=== PATIENT | female | born 1975 | race African-American/Black ===

== ENCOUNTER 2017-11-17 12:02 | Inpatient (IN) ==
[~2017-11-17 12:02] MED LIST: Lidocaine PF 1% Inj 5 ML Syringe INFILTRATN ONE; Succinylcholine Inj 200 MG/10 ML Vial IV.PUSH ONE
[2017-11-17 12:46] LABS: Baso # (Auto) 0.1 th/mm3 (0.0-0.2); Baso % (Auto) 0.4 % (0.0-2.0); Eos % (Auto) 0.3 % (0.0-4.0); Hematocrit 33.2 % (35.0-46.0); Hemoglobin 10.3 gm/dL (11.6-15.3); Lymph # (Auto) 1.8 th/mm3 (1.0-4.8); Lymph % (Auto) 12.8 % (9.0-44.0); Mean Corpuscular Hemoglobin 25.7 pg (27.0-34.0); Mean Corpuscular Volume 82.7 fL (80.0-100.0); Mean Platelet Volume 8.9 fL (7.0-11.0); Mono # (Auto) 1.5 th/mm3 (0.0-0.9); Mono % (Auto) 10.6 % (0.0-8.0); Neut # (Auto) 10.5 th/mm3 (1.8-7.7); Neut % (Auto) 75.9 % (16.0-70.0); Platelet Count 564 th/mm3 (150-450); Red Blood Count 4.01 mil/mm3 (4.00-5.30); Red Cell Distribution Width 14.9 % (11.6-17.2); White Blood Count 13.8 th/mm3 (4.0-11.0)
[2017-11-17 13:10] LABS: Calcium 8.9 mg/dL (8.5-10.1); Carbon Dioxide 17.6 meq/L (21.0-32.0)
[2017-11-17] MEDS ORDERED: Vancomycin Inj 1,000 MG in Sodium Chlor 0.9% Inj 250 ML IV.SIG STA (14:09)
[2017-11-17] MEDS ORDERED: Piperacil/Tazo 4.5 GM Premix 4.5 GM/100 ML BAG IV.SIG STA (14:09)
[2017-11-17] MEDS ORDERED: Sod Chloride 0.9% Inj 1,000 ML IV.SIG ONE ×3 (14:21→14:24)
--- NOTE | 2017-11-17 14:47 | ED ---
HPI General Chief complaint: Skin/Abscess/Foreign Body Stated complaint: Leg Pain Time Seen by Provider: 11/17/17 13:50 Source: patient Mode of arrival: ambulatory Limitations: no limitations History of Present Illness HPI narrative: 42-year-old diabetic female presents emergency department for evaluation of a "boil" to her right inner thigh that is been present for approximately 3 weeks. Says that she was evaluated at the ER at [facility] and given antibiotics however did not resolve. Says she subsequently followed up with an urgent care who prescribed clindamycin 300 mg 3 times daily for 7 days. Says was the last dose. Says that since last the abscess increased in size and pain. Says in addition she has had a grayish colored discharge from the right upper thigh. She also says that she has an abscess to her pubic area that is been present for several days. Her pain is moderate in severity and nonradiating. Described as aching and sharp, worse with pressure. She has been taking ibuprofen as previously prescribed for the pain and fever. Says she has had a decreased appetite with associated nausea for about a week and a half. She also noticed that her blood sugar has been elevated and she has felt feverish. Says her temperature has been up to 101. Says she did take all of her medical medications this morning. Says that she went to work this morning he decided to come in after work for evaluation. complaint: abscess/boil Onset (ago): week(s) (3) Related Data Allergies Allergy/AdvReac Type Severity Reaction Status Date / Time levofloxacin Allergy Severe Rash Verified 11/17/17 15:40 Review of Systems Except as stated in HPI: all other systems reviewed are negative [facility] Medical History Medical History Diabetes (Acute) Social History Social History Substance History: No History of Abuse Second Hand Smoke Exposure: No Smoking Status: Never smoker How Often Do You Have a Drink Containing Alcohol: Monthly or less Recent Travel in [place] within the Last 8 Weeks: No Recent Out of Country Travel within the Last 8 Weeks: No Exam Narrative Exam Narrative: GENERAL: WD, WN in NAD SKIN: Focused skin assessment warm/dry. Left upper thigh- 5x15cm mass with TTP, no spontaneough expression of fluid, area of central puncta, necrotic appearing tissue at inferior portion mons pubis- 4-5cm, round, with central puncta, bloody exudate HEAD: Atraumatic. Normocephalic. EYES: Pupils equal and round. No scleral icterus. No injection or drainage. ENT: No nasal bleeding or discharge. Mucous membranes pink and moist. NECK: Trachea midline. No JVD. CARDIOVASCULAR: tachycardic, regular rate and rhythm. No murmur appreciated. RESPIRATORY: No accessory muscle use. Clear to auscultation. Breath sounds equal bilaterally. GASTROINTESTINAL: Abdomen soft, non-tender, nondistended. Hepatic and splenic margins not palpable. MUSCULOSKELETAL: No obvious deformities. No clubbing. No cyanosis. No edema. NEUROLOGICAL: Awake and alert. No obvious cranial nerve deficits. Motor grossly within normal limits. Normal speech. PSYCHIATRIC: Appropriate mood and affect; insight and judgment normal. Course Initial Documented Vital Signs Temperature 100 F H 11/17/17 12:06 Pulse Rate 122 H 11/17/17 12:06 Respiratory Rate 18 11/17/17 12:06 Blood Pressure 149/78 H 11/17/17 12:06 Pulse Oximetry 100 11/17/17 12:06 Last Documented Vital Signs Temperature 100.3 F H 11/17/17 14:35 Pulse Rate 105 H 11/17/17 14:35 Respiratory Rate 18 11/17/17 14:35 Blood Pressure 144/74 H 11/17/17 14:35 Pulse Oximetry 100 11/17/17 14:35 Medical Decision Making [facility] Narrative Medical decision making narrative: 42-year-old female presents emergency department evaluation of an abscess to the right upper thigh that is been present for approximately 3 weeks. She says that she has taken 2 rounds of antibiotics and is not improved and only worsened. Says her last week and a half she has had a decreased appetite with associated nausea without vomiting. She has also had fevers up to 101 controlled with Motrin and Tylenol. Vital signs and labs are suggestive of developing sepsis. Physical exam findings concerning for extensive abscess to the right upper extremity. Zosyn, vancomycin, initiated. Sepsis protocol initiated. Blood sugar elevated over 500, ABG ordered for evaluation. 12U regular insulin administered. It does not appear at this point she is in DKA but BGL should be monitored. Dr. Espinoza spoke with Dr. Russo, general surgeon who advised to consult him for this patient. Pt will be admitted for sepsis secondary to an extensive abscess with failed outpatient antibiotic use, elevated blood sugar. I spoke with Dr. Antunez who agreed to take this patient. Differential Diagnosis Differential Diagnosis: Right lower extremity abscess, cellulitis, forniers gangrene, sepsis Lab Data Result diagrams: 11/17/17 12:17 11/17/17 12:17 Lab Results 11/17/17 11/17/17 11/17/17 Range/Units 12:17 12:17 12:17 WBC 13.8 H (4.0-11.0) th/mm3 RBC 4.01 (4.00-5.30) mil/mm3 Hgb 10.3 L (11.6-15.3) gm/dL Hct 33.2 L (35.0-46.0) % MCV 82.7 (80.0-100.0) fL MCH 25.7 L (27.0-34.0) pg MCHC 31.0 L (32.0-36.0) % RDW 14.9 (11.6-17.2) % Plt Count 564 H (150-450) th/mm3 MPV 8.9 (7.0-11.0) fL Neut % (Auto) 75.9 H (16.0-70.0) % Lymph % (Auto) 12.8 (9.0-44.0) % [place] % (Auto) 10.6 H (0.0-8.0) % Eos % (Auto) 0.3 (0.0-4.0) % Baso % (Auto) 0.4 (0.0-2.0) % Neut # (Auto) 10.5 H (1.8-7.7) th/mm3 Lymph # (Auto) 1.8 (1.0-4.8) th/mm3 [place] # (Auto) 1.5 H (0.0-0.9) th/mm3 Eos # (Auto) 0.0 (0.0-0.4) th/mm3 Baso # (Auto) 0.1 (0.0-0.2) th/mm3 WBC Differential . Differential Comment Auto diff final PT (9.8-11.6) sec INR Ratio APTT (24.3-30.1) sec Puncture Site Patient Temperature O2 Saturation (90-100) % ABG pH (7.380-7.420) ABG pCO2 (38-42) mmHg ABG pO2 (61-120) mmHg ABG HCO3 (22-26) mmol/L ABG O2 Content (12.0-20.0) Vol % ABG Base Excess (-2-2) mmol/L ABG Methemoglobin (0-2) % Hermilo Test Hemoglobin (12.0-16.0) G/DL Carboxyhemoglobin (0-4) % Inspired O2 % Critical Value Sodium 127 L (136-145) meq/L Potassium 5.0 (3.5-5.1) meq/L Chloride 91 L (98-107) meq/L Carbon Dioxide 17.6 L (21.0-32.0) meq/L Anion Gap 18 H (5-15) meq/L BUN 19 H (7-18) mg/dL Creatinine 1.70 H (0.50-1.00) mg/dL Estimated GFR 40 L (>89) mL/min POC Glucose (68-110) mg/dl Random Glucose 552 H* (74-106) mg/dL Lactic Acid 2.2 H (0.4-2.0) mmol/L Calcium 8.9 (8.5-10.1) mg/dL 11/17/17 11/17/17 11/17/17 Range/Units 14:47 14:58 16:11 WBC (4.0-11.0) th/mm3 RBC (4.00-5.30) mil/mm3 Hgb (11.6-15.3) gm/dL Hct (35.0-46.0) % MCV (80.0-100.0) fL MCH (27.0-34.0) pg MCHC (32.0-36.0) % RDW (11.6-17.2) % Plt Count (150-450) th/mm3 MPV (7.0-11.0) fL Neut % (Auto) (16.0-70.0) % Lymph % (Auto) (9.0-44.0) % [place] % (Auto) (0.0-8.0) % Eos % (Auto) (0.0-4.0) % Baso % (Auto) (0.0-2.0) % Neut # (Auto) (1.8-7.7) th/mm3 Lymph # (Auto) (1.0-4.8) th/mm3 [place] # (Auto) (0.0-0.9) th/mm3 Eos # (Auto) (0.0-0.4) th/mm3 Baso # (Auto) (0.0-0.2) th/mm3 WBC Differential Differential Comment PT 11.2 (9.8-11.6) sec INR 1.1 Ratio APTT 30.1 (24.3-30.1) sec Puncture Site Right radial Patient Temperature 98.6 O2 Saturation 96 (90-100) % ABG pH 7.42 (7.380-7.420) ABG pCO2 25 L (38-42) mmHg ABG pO2 98 (61-120) mmHg ABG HCO3 16 L* (22-26) mmol/L ABG O2 Content 14.6 (12.0-20.0) Vol % ABG Base Excess -7.6 L (-2-2) mmol/L ABG Methemoglobin 0.8 (0-2) % [place] Test Present Hemoglobin 10.8 L (12.0-16.0) G/DL Carboxyhemoglobin 1.5 (0-4) % Inspired O2 21 % Critical Value Yes Sodium (136-145) meq/L Potassium (3.5-5.1) meq/L Chloride (98-107) meq/L Carbon Dioxide (21.0-32.0) meq/L Anion Gap (5-15) meq/L BUN (7-18) mg/dL Creatinine (0.50-1.00) mg/dL Estimated GFR (>89) mL/min POC Glucose 487 H* (68-110) mg/dl Random Glucose (74-106) mg/dL Lactic Acid (0.4-2.0) mmol/L Calcium (8.5-10.1) mg/dL Imaging Data Radiologist's impression: ITS Impressions Chest X-Ray 11/17/17 14:09 CONCLUSION: No acute intrathoracic disease. Discharge Plan Discharge Disposition Patient Disposition: 30 Still Patient Discharge Condition Condition: Stable Discharge Details Discharge Problem: Sepsis affecting skin, Abscess, Acute hyperglycemia Physicians Team ED Provider: Hi Espinoza ED Midlevel Provider: Cielo Villaseñor Primary Care Provider: UNKNOWN, Attending Provider: Margarito Castellanos Discharge Interventions Interventions: Vital Signs Last Done: 11/17/17 14:35 Status ED Status: Admitted Patient
[2017-11-17 15:19] LABS: ABG Base Excess -7.6 mmol/L (-2-2); ABG PCO2 25 mmHg (38-42); ABG PO2 98 mmHg (61-120)
--- NOTE | 2017-11-17 15:24 | ED ---
HPI General Chief complaint: Skin/Abscess/Foreign Body Stated complaint: Leg Pain Time Seen by Provider: 11/17/17 13:50 Source: patient Mode of arrival: ambulatory Limitations: no limitations History of Present Illness MD complaint: abscess/boil Related Data Allergies Allergy/AdvReac Type Severity Reaction Status Date / Time clindamycin Allergy Severe Unverified 12/27/16 19:07 levofloxacin Allergy Severe Unverified 12/27/16 19:07 [facility] Medical History Medical History Diabetes (Acute) Social History Social History Substance History: No History of Abuse Second Hand Smoke Exposure: No Smoking Status: Never smoker How Often Do You Have a Drink Containing Alcohol: Monthly or less Recent Travel in [facility] within the Last 8 Weeks: No Recent Out of Country Travel within the Last 8 Weeks: No Immunization History Tetanus Immunization: <5 Years Hx Influenza Vaccine This Season: No Course Initial Documented Vital Signs Temperature 100 F H 11/17/17 12:06 Pulse Rate 122 H 11/17/17 12:06 Respiratory Rate 18 11/17/17 12:06 Blood Pressure 149/78 H 11/17/17 12:06 Pulse Oximetry 100 11/17/17 12:06 Last Documented Vital Signs Temperature 100.3 F H 11/17/17 14:35 Pulse Rate 105 H 11/17/17 14:35 Respiratory Rate 18 11/17/17 14:35 Blood Pressure 144/74 H 11/17/17 14:35 Pulse Oximetry 100 11/17/17 14:35 Medical Decision Making TERE Attestation TERE supervised visit: Yes Attestation: I, Dr. Espinoza, have reviewed the advance practice practitioner's documentation and am in agreement, met with the patient face to face, made the diagnosis, and the medical decision making was done by me. *My assessment and Findings: I examined the patient. She has a large right posterior proximal thigh abscess. It is not in the perineum. But he does need reasonably urgent attention. There is a necrotic center. She is an uncontrolled diabetic. She was given 3 L of saline and IV antibiotics and IV insulin. I spoke with general surgeon Dr. Russo who will evaluate her today and consider operating room drainage. PH is normal. Patient will be admitted Lab Data Result diagrams: 11/17/17 12:17 11/17/17 12:17 Lab Results 07/06/18 07/06/18 07/06/18 Range/Units 12:17 12:17 12:17 WBC 13.8 H (4.0-11.0) th/mm3 RBC 4.01 (4.00-5.30) mil/mm3 Hgb 10.3 L (11.6-15.3) gm/dL Hct 33.2 L (35.0-46.0) % MCV 82.7 (80.0-100.0) fL MCH 25.7 L (27.0-34.0) pg MCHC 31.0 L (32.0-36.0) % RDW 14.9 (11.6-17.2) % Plt Count 564 H (150-450) th/mm3 MPV 8.9 (7.0-11.0) fL Neut % (Auto) 75.9 H (16.0-70.0) % Lymph % (Auto) 12.8 (9.0-44.0) % [place] % (Auto) 10.6 H (0.0-8.0) % Eos % (Auto) 0.3 (0.0-4.0) % Baso % (Auto) 0.4 (0.0-2.0) % Neut # (Auto) 10.5 H (1.8-7.7) th/mm3 Lymph # (Auto) 1.8 (1.0-4.8) th/mm3 [place] # (Auto) 1.5 H (0.0-0.9) th/mm3 Eos # (Auto) 0.0 (0.0-0.4) th/mm3 Baso # (Auto) 0.1 (0.0-0.2) th/mm3 WBC Differential . Differential Comment Auto diff final Puncture Site Patient Temperature O2 Saturation (90-100) % ABG pH (7.380-7.420) ABG pCO2 (38-42) mmHg ABG pO2 (61-120) mmHg ABG HCO3 (22-26) mmol/L ABG O2 Content (12.0-20.0) Vol % ABG Base Excess (-2-2) mmol/L ABG Methemoglobin (0-2) % Hermilo Test Hemoglobin (12.0-16.0) G/DL Carboxyhemoglobin (0-4) % Inspired O2 % Critical Value Sodium 127 L (136-145) meq/L Potassium 5.0 (3.5-5.1) meq/L Chloride 91 L (98-107) meq/L Carbon Dioxide 17.6 L (21.0-32.0) meq/L Anion Gap 18 H (5-15) meq/L BUN 19 H (7-18) mg/dL Creatinine 1.70 H (0.50-1.00) mg/dL Estimated GFR 40 L (>89) mL/min Random Glucose 552 H* (74-106) mg/dL Lactic Acid 2.2 H (0.4-2.0) mmol/L Calcium 8.9 (8.5-10.1) mg/dL 11/17/17 Range/Units 14:47 WBC (4.0-11.0) th/mm3 RBC (4.00-5.30) mil/mm3 Hgb (11.6-15.3) gm/dL Hct (35.0-46.0) % MCV (80.0-100.0) fL MCH (27.0-34.0) pg MCHC (32.0-36.0) % RDW (11.6-17.2) % Plt Count (150-450) th/mm3 MPV (7.0-11.0) fL Neut % (Auto) (16.0-70.0) % Lymph % (Auto) (9.0-44.0) % [place] % (Auto) (0.0-8.0) % Eos % (Auto) (0.0-4.0) % Baso % (Auto) (0.0-2.0) % Neut # (Auto) (1.8-7.7) th/mm3 Lymph # (Auto) (1.0-4.8) th/mm3 [place] # (Auto) (0.0-0.9) th/mm3 Eos # (Auto) (0.0-0.4) th/mm3 Baso # (Auto) (0.0-0.2) th/mm3 WBC Differential Differential Comment Puncture Site Right radial Patient Temperature 98.6 O2 Saturation 96 (90-100) % ABG pH 7.42 (7.380-7.420) ABG pCO2 25 L (38-42) mmHg ABG pO2 98 (61-120) mmHg ABG HCO3 16 L* (22-26) mmol/L ABG O2 Content 14.6 (12.0-20.0) Vol % ABG Base Excess -7.6 L (-2-2) mmol/L ABG Methemoglobin 0.8 (0-2) % Hermilo Test Present Hemoglobin 10.8 L (12.0-16.0) G/DL Carboxyhemoglobin 1.5 (0-4) % Inspired O2 21 % Critical Value Yes Sodium (136-145) meq/L Potassium (3.5-5.1) meq/L Chloride (98-107) meq/L Carbon Dioxide (21.0-32.0) meq/L Anion Gap (5-15) meq/L BUN (7-18) mg/dL Creatinine (0.50-1.00) mg/dL Estimated GFR (>89) mL/min Random Glucose (74-106) mg/dL Lactic Acid (0.4-2.0) mmol/L Calcium (8.5-10.1) mg/dL Discharge Plan Discharge Disposition Patient Disposition: 30 Still Patient Discharge Condition Condition: Stable Discharge Details Discharge Problem: Sepsis affecting skin, Abscess Physicians Team ED Provider: Hi Espinoza ED Midlevel Provider: Cielo Villaseñor Primary Care Provider: UNKNOWN, Status ED Status: With Doctor
--- NOTE | 2017-11-17 15:25 | XR ---
EXAM DATE: 11/17/2017 3:17 PM EDT AGE/SEX: 42 years / Female INDICATIONS: Fever and shortness of breath. CLINICAL DATA: This is the patient's initial encounter. Patient reports that signs and symptoms have been present for 1 day and indicates a pain score of 0/10. MEDICAL/SURGICAL HISTORY: Diabetes. None. COMPARISON: No prior exams available for comparison. FINDINGS: A single AP view of the chest demonstrates the lungs to be aerated without evidence of mass, infiltr ate or effusion. There is mild elevation of the right hemidiaphragm. The cardiomediastinal contours a re unremarkable. Osseous structures are intact. CONCLUSION: No acute intrathoracic disease. Electronically signed by: Jeremiah Cortés MD 11/17/2017 3:24 PM EDT
[2017-11-17 15:34] LABS: Activated Partial Thrombo Time 30.1 sec (24.3-30.1); INR 1.1 Ratio; Prothrombin Time 11.2 sec (9.8-11.6)
[2017-11-17] MEDS ORDERED: Naloxone Inj 0.4 MG/ML Vial IV.PUSH PRN ×3 (17:50→22:39)
[2017-11-17] MEDS ORDERED: Bisacodyl 10 MG Supp RECTAL PRN (17:50)
[2017-11-17] MEDS ORDERED: Sodium Chloride 0.45 % Inj 1,000 ML IV.CONT SCH (18:00)
--- NOTE | 2017-11-17 18:37 | P.HPIM ---
History of Present Illness Service: Hospitalist service. Primary Care Physician: UNKNOWN Chief Complaint: Right thigh abscesses, fever History of Present Illness: This is a 42-year-old -[place] female with history of diabetes mellitus noncompliant with treatment who presents to [facility] complaining of right thigh pain and swelling along with drainage was started approximately 2 weeks ago. The patient states that she had a boil on the right thigh for which she went to for the hospital at [place] and was initially treated with Bactrim. After taking Bactrim for 4 days and not seeing any improvement the patient went to an urgent care at the same [facility] and was prescribed clindamycin. The patient states she finished the clindamycin course yesterday without seeing any improvement. She also states that she has seen for discharge coming from the swelling part. Swelling is localized in the right inner thigh associated with severe tenderness to palpation and pain, nonradiating, 10/10 on its max intensity. Patient states moving and walking makes the pain worst and laying still and receiving pain medications makes it better. The patient also complains of fevers and chills as well as nausea but denies abdominal pain or diarrhea. Patient also denies dysuria, headache, dizziness, chest pain or shortness of breath as well as cough. Inpatient Certification: I certify that the inpatient services were ordered in accordance with Medicare regulations governing the order. This includes certification that hospital inpatient services are reasonable and necessary and in the case of services not specified as inpatient-only under 42 CFR 419.22(n), that they are appropriately provided as inpatient services in accordance to with the 2-midnight benchmark under 43 CFR 412.3(e) Estimated Total Length of Stay (Days): 3 Plans for Post Hospital Care: Home Review of Systems All other systems reviewed negative except as stated in HPI PMFSH - History History Provided By: Patient - Medical / Surgical Hx Neg / Unobtainable Surgical History: No Previous Surgery - Medical History Medical History: Medical History (Last Reviewed 11/17/17 @ 18:21 by Margarito Castellanos MD) Diabetes - Family History Family History: Family History (Last Updated 11/17/17 @ 18:25 by Margarito Castellanos MD) Father Diabetes Mother Diabetes - Tobacco History Second Hand Smoke Exposure: No Tobacco Use In Past 30 Days: No Smoking Status: Never smoker - Alcohol History How Often Do You Have a Drink Containing Alcohol: Monthly or less - Substance Use History Substance History: No History of Abuse - Travel History Recent Travel in the [place] Within the Last 8 Weeks: No Recent Travel Out of the Country Within the Last 8 Weeks: No - Immunization History Tetanus Immunization: <5 Years Hx Influenza Vaccine This Season: No Medications and Allergies Active Medications: Active Medications Hydrocodone Bitart/Acetaminophen ([place] 7.5/325) 1 tab PO Q4H PRN PRN Reason: PAIN SCALE 6 TO 10 Hydrocodone Bitart/Acetaminophen ([place] 5/325) 1 tab PO Q4H PRN PRN Reason: PAIN SCALE 3 TO 5 Al Hydroxide/Mg Hydroxide (Milk Of Magnesia Liq) 30 ml PO Q12H PRN PRN Reason: Mild Constipation Bisacodyl (Dulcolax Supp) 10 mg RECTAL DAILY PRN PRN Reason: SEVERE CONSITIPATION Heparin Sodium (Porcine) (Heparin Inj) 5,000 units SQ Q8H [facility] Sodium Chloride (1/2 Normal Saline Inj) 1,000 mls @ 100 mls/hr IV.CONT .Q10H [facility] Vancomycin/Sodium Chloride (Vancomycin Inj) 1 gm in 200 mls @ 200 mls/hr IV.SIG Q24H [facility] Pharmacy Profile Note (Vancomycin Consult Pharmacy) 0 mls @ 0 mls/hr OTHER UNSCH [facility] Insulin Aspart (Novolog Insulin Suppl Scale Inj) 0 unit SQ 07,13,19,01 [facility]; Protocol Insulin Aspart (Novolog Insulin Suppl Scale Inj) 9 unit SQ TIDAC [facility]; Protocol Insulin Detemir (Levemir Inj) 17 unit SQ HS [facility]; Protocol Lactulose (Lactulose Liq) 30 ml PO DAILY PRN PRN Reason: SEVERE CONSITIPATION Morphine Sulfate (Morphine Inj) 4 mg IV.PUSH Q3H PRN PRN Reason: BREAKTHROUGH PAIN Naloxone HCl (Narcan Inj) 0.4 mg IV.PUSH UNSCH PRN PRN Reason: SEE LABEL COMMENTS Naloxone HCl (Narcan Inj) 0.4 mg IV.PUSH UNSCH PRN PRN Reason: SEE LABEL COMMENTS Senna/Docusate Sodium (Beata-Colace) 1 tab PO BID [facility] Sennosides (Senokot) 17.2 mg PO Q12H PRN PRN Reason: Moderate Constipation Temazepam (Restoril) 15 mg PO HS PRN PRN Reason: INSOMNIA Allergies Allergy/AdvReac Type Severity Reaction Status Date / Time levofloxacin Allergy Severe Rash Verified 11/17/17 15:40 Exam Vital signs: Vital Signs 11/17/17 12:06 11/17/17 14:35 11/17/17 16:15 Temperature 100 F H 100.3 F H Pulse Rate 122 H 105 H Respiratory Rate 18 18 16 Blood Pressure 149/78 H 144/74 H Pulse Oximetry 100 100 Intake & Output 11/16/17 11/17/17 11/17/17 18:59 06:59 18:59 Intake Total 1000 / 1000 Balance 1000 / 1000 Weight 113.398 kg Intake: IV 1000 / 1000 NS Inj 1,000 ML @ Wide Open IV. 1000 / 1000 SIG BOLUS ONE Rx#:[id number] - Constitutional no acute distress - Routine HEENT Exam Head: Present: normocephalic, atraumatic - Routine Neck Exam Present: supple - Routine Respiratory Exam Present: CTA bilaterally - Routine Cardiovascular Exam Present: RRR, S1, S2 - Routine Abdominal Exam Present: soft, normoactive bowel sounds Comments: obese abdomen - Routine Extremities Exam Present: pulses intact - Routine Skin Exam Comments: Right thigh swelling and tenderness as well as erythema in the right inner thigh. There is purulent discharge observed coming from opening in wound. Results - Labs CBC & Chem 7: 11/17/17 12:17 11/17/17 12:17 Labs: Short CBC 11/17/17 Range/Units 12:17 WBC 13.8 H (4.0-11.0) th/mm3 Hgb 10.3 L (11.6-15.3) gm/dL Hct 33.2 L (35.0-46.0) % Plt Count 564 H (150-450) th/mm3 BMP 11/17/17 12:17 Sodium 127 L Potassium 5.0 Chloride 91 L Carbon Dioxide 17.6 L BUN 19 H Creatinine 1.70 H Calcium 8.9 - Imaging Impressions Chest X-Ray 11/17/17 14:09 CONCLUSION: No acute intrathoracic disease. Caprini VTE Risk Assessment Caprini VTE Risk Assessment: Moderate/High Risk (score >= 2) Caprini Risk Assessment Model: Point Value = 1 Point Value = 2 Point Value = 3 Point Value = 5 Age 41-60 Minor surgery BMI > 25 kg/m2 Swollen legs Varicose veins or History of unexplained or recurrent spontaneous Oral contraceptives or hormone replacement Sepsis (< 1 month) Serious lung disease, including pneumonia (< 1 month) Abnormal pulmonary function Acute myocardial infarction Congestive heart failure (< 1 month) History of inflammatory bowel disease Medical patient at bed rest Age 61-74 Arthroscopic surgery Major open surgery (> 45 min) Laparoscopic surgery (> 45 min) Malignancy Confined to bed (> 72 hours) Immobilizing plaster cast Central venous access Age >= 75 History of VTE Family history of VTE Factor V Leiden Prothrombin [id number] Lupus anticoagulant Anticardiolipin antibodies Elevated serum homocysteine Heparin-induced thrombocytopenia Other congenital or acquired thrombophilia Stroke (< 1 month) Elective arthroplasty Hip, pelvis, or leg fracture Acute spinal cord injury (< 1 month) Prophylaxis Regimen: Total Risk Factor Score Risk Level Prophylaxis Regimen 0-1 Low Early ambulation 2 Moderate Order ONE of the following: *Sequential Compression Device (SCD) *Heparin 5000 units SQ BID 3-4 Higher Order ONE of the following medications: *Heparin 5000 units SQ TID *Enoxaparin/Lovenox 40 mg SQ daily (WT < 150 kg, CrCl > 30 mL/min) *Enoxaparin/Lovenox 30 mg SQ daily (WT < 150 kg, CrCl > 10-29 mL/min) *Enoxaparin/Lovenox 30 mg SQ BID (WT < 150 kg, CrCl > 30 mL/min) AND/OR *Sequential Compression Device (SCD) 5 or more Highest Order ONE of the following medications: *Heparin 5000 units SQ TID (Preferred with Epidurals) *Enoxaparin/Lovenox 40 mg SQ daily (WT < 150 kg, CrCl > 30 mL/min) *Enoxaparin/Lovenox 30 mg SQ daily (WT < 150 kg, CrCl > 10-29 mL/min) *Enoxaparin/Lovenox 30 mg SQ BID (WT < 150 kg, CrCl > 30 mL/min) AND *Sequential Compression Device (SCD) Assessment and Plan - Plan 1. Sepsis. 2. Right thigh abscess. 3. Hyponatremia. 4. Metabolic acidosis. 6. AKA. Diabetes mellitus type 2 with hyperglycemia. 4. Lactic acidosis. 1. Severe sepsis present on admission with leukocytosis, right thigh abscess, tachycardia as well as fever. Admit the patient to the medical surgical floor, monitor on telemetry, placed on IV fluids, continue broad-spectrum IV antibiotics with IV vancomycin IV Zosyn. Surgery has been consulted for incision and drainage for Consider ID consultation. Follow-up blood cultures obtained in the ED. 2. Surgery consulted. Patient for incision and drainage later today. Keep n.p.o. Pain control of right thigh abscess with oral Percocet and IV morphine for breakthrough pain. 3. Hyponatremia likely pseudohyponatremia from severe hyperglycemia. Correct hyperglycemia with subcutaneous insulin. 4. Metabolic acidosis. Likely secondary to elevated lactic acid level. Monitor BMP. Treated with IV fluids and IV antibiotics. 5. Diabetes mellitus type 2 with hyperglycemia. Patient with blood sugars in the 500s range. Patient is noncompliant with diabetic treatment. Check hemoglobin A1c. Check lipid profile. We will start the patient is starting to the patient is diabetic. Placed on basal bolus therapy with insulin Levemir and insulin NovoLog. Placed on SSI with insulin NovoLog. Monitor Accu-Cheks. Diabetic diet. rn diabetes educator consult. 6. Elevated lactic acid level. Secondary to sepsis and dehydration. Treated with IV fluids. Monitor lactic acid levels. 7. GI prophylaxis Start on a PPI. 8. DVT prophylaxis Patient is at high risk due to obesity, sepsis, active infection, dehydration. We will start the patient on Lovenox subcutaneously to be held prior to incision and drainage. Code Status: Full code Discussed Condition With: Patient, ED physician. Discharge Planning: Continue to monitor the medical floor. Discharge pending clinical improvement.
[2017-11-17] MEDS ORDERED: Vancomycin Inj 1 GM/200 ML PIGGYBACK IV.SIG SCH (19:00)
[2017-11-17] MEDS ORDERED: Vancomycin Consult Pharmacy 1 EACH OTHER SCH (19:00)
--- NOTE | 2017-11-17 21:11 | P.OP ---
- Preoperative Diagnosis (1) Abscess - Postoperative Diagnosis (1) Abscess Date of procedure: 11/17/17 Procedure: I and D or right lower extremity abscess Anesthesia: GETA Surgeon: Viral Russo MD Estimated blood loss (mL): 10 Pathology: other (abcess) Operation and Findings: pus
[2017-11-17] MEDS ORDERED: Heparin - SQ 10,000 UNITS/ML Vial SQ SCH (22:00)
[2017-11-17] MEDS ORDERED: *morphine SULFATE 4 MG/ML PERIprocedure ONLY ONE (22:18)
[2017-11-17] MEDS ORDERED: fentaNYL Citrate Inj 100 MCG/2 ML Ampul ONE (22:35)
[2017-11-17] MEDS: Insulin NovoLOG Aspart Correctional Sugar Inj SQ SCH (22:56)
[2017-11-17] MEDS: Insulin Detemir Inj 1,000 UNIT/10 ML Vial SQ SCH (22:56)
[2017-11-17] MEDS: Sod Chloride 0.9% Inj 1,000 ML IV.SIG SCH (23:22)
[2017-11-17] MEDS: Morphine Inj 30 MG/30 ML PCA.VIAL PCA PRN (23:24)
--- NOTE | 2017-11-18 00:11 | MP ---
cc: Viral Russo MD DATE OF OPERATION: 11/17/2017 PREOPERATIVE DIAGNOSIS: Suprapubic abscess, right lower extremity abscess. POSTOPERATIVE DIAGNOSIS: Suprapubic abscess, right lower extremity abscess. PROCEDURE PERFORMED: 1) Incision with excisional debridement of right lower extremity thigh and buttock abscess, cavity 5 cm x 4 cm x 3 cm deep; second cavity in suprapubic region 4 cm x 4 cm x 3 cm deep; excisional debridement of subcutaneous tissues and necrotic fat. 2) negative pressure wound vac SURGEON: Dr. Viral Russo REGULAR SENIOR CARE PROVIDER: See OR sheet. ANESTHESIA: GETA. IV FLUIDS: See anesthesia sheet. ESTIMATED BLOOD LOSS: 30 mL. DRAINS: Hemovac placement. COMPLICATIONS: None. WOUND CLASSIFICATION: Dirty/contaminated. SPECIMENS: Pus sent for culture and sensitivity. FINDINGS: Necrotic subcutaneous tissues with very large abscess x2. INDICATIONS: The patient presented with hyperglycemia, blood sugars in the 500s, history of diabetes, poorly controlled, with right lower extremity pain and suprapubic pain. She had a leukocytosis and low-grade fevers that had been going on for several weeks and continued to get worse. She came to the emergency department for evaluation with concerns for a large lower extremity abscess. DETAILS OF PROCEDURE: The patient was taken to the operating suite, placed in the lithotomy position on stirrups. She was prepped and draped in the usual sterile fashion after induction of general endotracheal anesthesia. Brief timeout was done, stating correct patient, procedure, surgical site. We were all in agreement with this. Attention was directed to the posterior right lower extremity thigh and buttock. There was an eschar with a necrotic area. This was excised. This was completely removed with a 15 blade scalpel. Further dissection with electric Bovie cautery. There was a large amount of draining purulent pus discharge. There was another connecting punctate just superior and medial to this which was extended with electric Bovie cautery. The 2 cavities did connect. There was a very large cavity noted. Excisional debridement of subcutaneous tissue and necrotic tissue was done. Irrigation with saline of 3 liters was done to the cavity. Then, attention was directed to the suprapubic cavity, where a small incision was made and again purulent drainage was noted. Hemostat was used for dilation and innerdigitation and breaking up loculations. Again, this underlying subcutaneous tissue with fat was excisional. We debrided. Irrigation also done to this cavity as well. This cavity was packed with Kerlix, Betadine-soaked, wet-to-dry. A VAC was obtained and placed in the 2 open areas that were, again, connecting. The plastic was placed, was placed, and a bridge was done between the 2 areas. This was hooked to a suction canister without evidence of leaking. The patient was extubated and taken to the PACU. All lap and instrument counts were correct, and there were no intraoperative complications. The patient tolerated the procedure well. MD PAPI Edwards/LASHONDA , 11:05 PM , 12:10 AM MTDD
--- NOTE | 2017-11-18 00:41 | MB ---
cc: Viral Russo MD DATE: 11/17/2017 CHIEF COMPLAINT: Right thigh and buttock abscess. HISTORY OF PRESENT ILLNESS: The patient is a 42-year-old female who presents with a history of multiple medical issues including poorly controlled diabetes. The patient notes that she has had pain and swelling in the right thigh/buttock area for the past 2 weeks. This started as a boil and continued to get worse. She was initially placed on antibiotics, without improvement. She came to the emergency department for further evaluation, with labs including a leukocytosis, and significant pain to the right lower extremity with some purulence. She states the pain was 10/10, with some improvement to 6/10 with IV pain medication. She states the pain is worse with movement, better with lying still. She also has subjective fevers and chills. She states poorly controlled blood sugars recently. PAST MEDICAL HISTORY: Diabetes, hypertension. PAST SURGICAL HISTORY: No previous surgeries. MEDICATIONS: See EMR. ALLERGIES: LEVOFLOXACIN. SOCIAL HISTORY: Denies smoking, ETOH or IVDA. FAMILY HISTORY: Denies coronary artery disease or hypertension. REVIEW OF SYSTEMS: GENERAL: Complains of fevers. HEENT: Denies eye pain, ear pain. NECK: Denies swelling or pain. LUNGS: Denies cough or wheeze. HEART: Denies palpitations or chest pain. ABDOMEN: Denies abdominal pain or nausea. EXTREMITIES: Complains of abscess. GENITOURINARY: Denies dysuria or hematuria. ENDOCRINE: Denies polyuria or polydipsia. PHYSICAL EXAMINATION: GENERAL: No acute distress. VITAL SIGNS: Temperature 100, pulse 105, respirations 18, blood pressure 144/74, saturation 100 percent. HEENT: Pupils equal, round, reactive. NECK: Supple. Trachea midline. LUNGS: Clear to auscultation, bilateral expansion. HEART: S1, S2. ABDOMEN: Soft, nontender, nondistended. EXTREMITIES: Large buttock and right thigh posterior abscess, suprapubic abscess as well, scant drainage of fluid, small necrotic area. NEUROLOGIC: GCS of 15, 5/5 motor in all extremities. PSYCHIATRIC: Appropriate mood, appropriate insight. LABORATORY AND DIAGNOSTIC DATA: WBC 13.8, hemoglobin 10.3, hematocrit 33.2, platelets 564. Sodium is pending. Blood glucose is 487, lactate 2.2, beta hCG 4.5. ASSESSMENT: The patient is a 42-year-old female, a poorly controlled diabetic, with a large right lower extremity abscess. PLAN: After full clinical, radiologic and laboratory workup, the patient with the above main issues including a large abscess. At this point, I discussed with the patient she needs to go to for incision and drainage with excisional debridement of necrotic tissue. She states understanding of this and would like to proceed. The patient needs to be n.p.o., IV fluids, IV antibiotics. Recommend insulin drip for poorly controlled diabetes; will defer to medicine for this. MD PAPI Edwards/LASHONDA , 11:39 PM , 12:39 AM MTDD
[2017-11-18] MEDS: Senna/Docusate Sodium 8.6/50 MG Tablet PO SCH ×3 (01:27→20:15)
[2017-11-18] MEDS: Insulin NovoLOG Aspart Correctional Sugar Inj SQ SCH ×7 (02:11→18:45)
[2017-11-18 04:28] LABS: Baso # (Auto) 0.1 th/mm3 (0.0-0.2); Baso % (Auto) 0.5 % (0.0-2.0); Eos # (Auto) 0.1 th/mm3 (0.0-0.4); Eos % (Auto) 0.7 % (0.0-4.0); Hematocrit 28.2 % (35.0-46.0); Lymph # (Auto) 1.8 th/mm3 (1.0-4.8); Lymph % (Auto) 15.6 % (9.0-44.0); Mean Corpuscular HGB Conc 31.9 % (32.0-36.0); Mean Corpuscular Hemoglobin 25.9 pg (27.0-34.0); Mean Corpuscular Volume 81.1 fL (80.0-100.0); Mean Platelet Volume 8.4 fL (7.0-11.0); Mono # (Auto) 1.2 th/mm3 (0.0-0.9); Mono % (Auto) 10.9 % (0.0-8.0); Neut # (Auto) 8.1 th/mm3 (1.8-7.7); Neut % (Auto) 72.3 % (16.0-70.0); Platelet Count 486 th/mm3 (150-450); Red Blood Count 3.47 mil/mm3 (4.00-5.30); Red Cell Distribution Width 14.4 % (11.6-17.2); White Blood Count 11.2 th/mm3 (4.0-11.0)
[2017-11-18 06:09] LABS: Alanine Aminotransferase 7 U/L (10-53); Albumin 1.9 g/dL (3.4-5.0); Alkaline Phosphatase 114 U/L (45-117); Anion Gap 12 meq/L (5-15); Aspartate Aminotransferase 15 U/L (15-37); Blood Urea Nitrogen 14 mg/dL (7-18); Calcium 8.2 mg/dL (8.5-10.1); Carbon Dioxide 20.5 meq/L (21.0-32.0); Chloride 102 meq/L (98-107); Chol/HDL Ratio 3.76 Ratio; Cholesterol 124 mg/dL (120-200); Glomerular Filtration Rate 56 mL/min (>89); Glucose,Random 238 mg/dL (74-106); HDL Cholesterol 32.9 mg/dL (40.0-60.0); LDL Cholesterol,Calculated 70 mg/dL (0-99); Potassium 4.2 meq/L (3.5-5.1); Sodium 134 meq/L (136-145); Triglycerides 108 mg/dL (42-150)
[2017-11-18] MEDS: Sod Chloride 0.9% Inj 1,000 ML IV.SIG SCH ×3 (06:12→18:31)
--- NOTE | 2017-11-18 11:02 | P.PNGS ---
Subjective Patient reports: no new complaints, feels better, still having pain, no bowel movement Physical Exam Vital signs: Vital Signs 11/17/17 12:06 11/17/17 14:35 11/17/17 16:15 Temperature 100 F H 100.3 F H Pulse Rate 122 H 105 H Respiratory Rate 18 18 16 Blood Pressure 149/78 H 144/74 H Pulse Oximetry 100 100 11/17/17 19:36 11/17/17 22:01 11/17/17 22:05 Temperature 98.5 F Pulse Rate 95 H 92 H 91 H Respiratory Rate 18 14 14 Blood Pressure 141/68 H 96/55 L 114/52 L Pulse Oximetry 99 100 100 11/17/17 22:15 11/17/17 22:30 11/17/17 22:45 Temperature Pulse Rate 85 83 Respiratory Rate 16 16 Blood Pressure 93/46 L 88/51 L Pulse Oximetry 100 100 100 11/17/17 23:00 11/17/17 23:15 11/17/17 23:30 Temperature Pulse Rate 86 87 84 Respiratory Rate 17 16 17 Blood Pressure 96/51 L 94/53 L 110/65 Pulse Oximetry 100 100 100 11/17/17 23:45 11/18/17 00:00 11/18/17 04:00 Temperature 98.1 F 98.4 F Pulse Rate 85 88 92 H Respiratory Rate 15 18 18 Blood Pressure 118/64 117/65 111/61 Pulse Oximetry 100 98 98 Intake & Output 11/17/17 11/18/17 11/18/17 18:59 06:59 18:59 Intake Total 1000 / 1000 4300 / 4300 Output Total 1050 / 1050 50 / 50 Balance 1000 / 1000 3250 / 3250 -50 / -50 Weight 113.398 kg Intake: IV 1000 / 1000 2250 / 2250 1/2 Normal Saline Inj 1,000 ML 0 / 0 @ 100 mls/hr IV.CONT .Q10H [facility] Rx#:[id number] NS Inj 1,000 ML @ 125 mls/hr IV 1000 / 1000 1000 / 1000 .SIG .Q8H [facility] Rx#:[id number] Vancomycin Inj 1,000 MG In NS 250 / 250 Inj 250 ML @ 250 mls/hr IV.SIG STAT STA Rx#:[id number] Anesthesia Amount 2049 / 2049 Output: Urine 1000 / 1000 Estimated Blood Loss 50 / 50 Wound Drainage 50 / 50 Right Thigh 50 / 50 Other: # Incontinent Voids 1 - Constitutional no acute distress - Routine Respiratory Exam Present: CTA bilaterally - Routine Cardiovascular Exam Present: RRR - Routine Abdominal Exam Present: soft, normoactive bowel sounds, wound Comments: vac intact, wounds covered, no drainage
--- NOTE | 2017-11-18 12:13 | P.CONID ---
History of Present Illness Service: ID Consult date: 11/18/17 Requesting Physician: Elvia Chatterjee Reason for Consult: Evaluation and Mment of Groin and pubic abscess, sepsis Primary Care Provider: UNKNOWN Chief Complaint: Right thigh abscesses, fever History of Present Illness: is a 42-year-old -[place] female with past medical history significant for diabetes mellitus. Patient initially presented to [facility] where she was prescribed Bactrim oral and after 3 days been she did not improve she went to a local urgent care. At the urgent care she was prescribed clindamycin and they may have been local incision made to drain this. Patient now presents to the emergency department at [facility] for evaluation of a boil on the right inner thigh that is approximately 3 weeks old at this point. Patient reports being compliant with Bactrim as well as clindamycin and is almost at the end of the therapy and does not seem to be improving. Patient describes moderately severe pain that is nonradiating present mostly in her right inner thigh area. She describes this as aching and sharp and it is worse with pressure and on sitting down. Has been taking ibuprofen for pain as well as fever. Reports decreased appetite. She reports that her blood sugars have been running high and she feels feverish with chills. She had a temperature of 101 Fahrenheit prior to arrival. Patient met sepsis criteria and workup was initiated. Patient underwent imaging as well as call patient underwent irrigation and debridement of these abscesses by Dr. Russo. It appears that these are fairly large abscesses predominantly in the pubis as well as on the right inner thigh area. Infectious diseases consulted for evaluation and management of groin and thigh abscesses, as well as sepsis. Patient reports objective fevers and chills but denies any night sweats. Patient reports compliance with medications. Review of Systems All other systems reviewed negative except as stated in HPI PMFSH - History History Provided By: Patient - Medical History Medical History: Medical History (Last Reviewed 11/18/17 @ 03:06 by Ck Elliott RN) Diabetes - Family History Family History: Family History (Last Updated 11/17/17 @ 18:25 by Margarito Castellanos MD) Father Diabetes Mother Diabetes - Tobacco History Second Hand Smoke Exposure: No Tobacco Use In Past 30 Days: No Smoking Status: Never smoker - Alcohol History How Often Do You Have a Drink Containing Alcohol: Monthly or less - Substance Use History Substance History: No History of Abuse - Travel History Recent Travel in the [place] Within the Last 8 Weeks: No Recent Travel Out of the Country Within the Last 8 Weeks: No - Immunization History Tetanus Immunization: <5 Years Hx Influenza Vaccine This Season: No Medications and Allergies Active Medications: Active Medications Hydrocodone Bitart/Acetaminophen (Ridgeway 7.5/325) 1 tab PO Q4H PRN PRN Reason: PAIN SCALE 6 TO 10 Hydrocodone Bitart/Acetaminophen (Ridgeway 5/325) 1 tab PO Q4H PRN PRN Reason: PAIN SCALE 3 TO 5 Al Hydroxide/Mg Hydroxide (Milk Of Magnesia Liq) 30 ml PO Q12H PRN PRN Reason: Mild Constipation Bisacodyl (Dulcolax Supp) 10 mg RECTAL DAILY PRN PRN Reason: SEVERE CONSITIPATION Heparin Sodium (Porcine) (Heparin Inj) 5,000 units SQ Q8H [facility] Pharmacy Profile Note (Vancomycin Consult Pharmacy) 0 mls @ 0 mls/hr OTHER UNSCH [facility] Sodium Chloride (Ns Inj) 1,000 mls @ 125 mls/hr IV.SIG .Q8H [facility] Last Admin: 11/18/17 06:12 Dose: 125 mls/hr Morphine Sulfate (Morphine Inj) 30 mg in 30 mls @ 0 mls/hr [facility] UNSCH PRN PRN Reason: per RESIN SHAVER parameters Last Admin: 11/17/17 23:24 Dose: 0 mls/hr Insulin Aspart (Novolog Insulin Suppl Scale Inj) 0 unit SQ 07,13,19,01 [facility]; Protocol Last Admin: 11/18/17 06:20 Dose: 100 unit Insulin Aspart (Novolog Insulin Suppl Scale Inj) 9 unit SQ TIDAC [facility]; Protocol Last Admin: 11/18/17 08:54 Dose: 9 unit Insulin Detemir (Levemir Inj) 17 unit SQ HS [facility]; Protocol Last Admin: 11/17/17 22:56 Dose: 17 unit Lactulose (Lactulose Liq) 30 ml PO DAILY PRN PRN Reason: SEVERE CONSITIPATION Miscellaneous Information (Mis Nursing Information) 1 each OTHER UNSCH PRN PRN Reason: SEE LABEL COMMENTS Stop: 11/18/17 22:31 Morphine Sulfate (Morphine Inj) 4 mg IV.PUSH Q3H PRN PRN Reason: BREAKTHROUGH PAIN Naloxone HCl (Narcan Inj) 0.4 mg IV.PUSH UNSCH PRN PRN Reason: SEE LABEL COMMENTS Naloxone HCl (Narcan Inj) 0.4 mg IV.PUSH UNSCH PRN PRN Reason: SEE LABEL COMMENTS Naloxone HCl (Narcan Inj) 0.4 mg IV.PUSH PRN PRN PRN Reason: Resp rate < 10 Senna/Docusate Sodium (Beata-Colace) 1 tab PO BID JEANNA Last Admin: 11/18/17 08:55 Dose: Not Given Sennosides (Senokot) 17.2 mg PO Q12H PRN PRN Reason: Moderate Constipation Temazepam (Restoril) 15 mg PO HS PRN PRN Reason: INSOMNIA Allergies Allergy/AdvReac Type Severity Reaction Status Date / Time levofloxacin Allergy Severe Rash Verified 11/17/17 15:40 Home Medications Medication Instructions Recorded Confirmed Type metformin 500 mg PO BID 11/17/17 11/17/17 History Exam Vital signs: Vital Signs 11/17/17 14:35 11/17/17 16:15 11/17/17 19:36 Temperature 100.3 F H Pulse Rate 105 H 95 H Respiratory Rate 18 16 18 Blood Pressure 144/74 H 141/68 H Pulse Oximetry 100 99 11/17/17 22:01 11/17/17 22:05 11/17/17 22:15 Temperature 98.5 F Pulse Rate 92 H 91 H Respiratory Rate 14 14 Blood Pressure 96/55 L 114/52 L Pulse Oximetry 100 100 100 11/17/17 22:30 11/17/17 22:45 11/17/17 23:00 Temperature Pulse Rate 85 83 86 Respiratory Rate 16 16 17 Blood Pressure 93/46 L 88/51 L 96/51 L Pulse Oximetry 100 100 100 11/17/17 23:15 11/17/17 23:30 11/17/17 23:45 Temperature Pulse Rate 87 84 85 Respiratory Rate 16 17 15 Blood Pressure 94/53 L 110/65 118/64 Pulse Oximetry 100 100 100 11/18/17 00:00 11/18/17 04:00 Temperature 98.1 F 98.4 F Pulse Rate 88 92 H Respiratory Rate 18 18 Blood Pressure 117/65 111/61 Pulse Oximetry 98 98 Intake & Output 11/17/17 11/18/17 11/18/17 18:59 06:59 18:59 Intake Total 1000 / 1000 4300 / 4300 Output Total 1050 / 1050 50 / 50 Balance 1000 / 1000 3250 / 3250 -50 / -50 Weight 113.398 kg Intake: IV 1000 / 1000 2250 / 2250 1/2 Normal Saline Inj 1,000 ML 0 / 0 @ 100 mls/hr IV.CONT .Q10H [facility] Rx#:[id number] NS Inj 1,000 ML @ 125 mls/hr IV 1000 / 1000 1000 / 1000 .SIG .Q8H JEANNA Rx#:[id number] Vancomycin Inj 1,000 MG In NS 250 / 250 Inj 250 ML @ 250 mls/hr IV.SIG STAT STA Rx#:[id number] Anesthesia Amount 2049 / 2049 Output: Urine 1000 / 1000 Estimated Blood Loss 50 / 50 Wound Drainage 50 / 50 Right Thigh 50 / 50 Other: # Incontinent Voids 1 Narrative: Mons pubis with induration and tenderness packing noted. Right thigh and buttock area with induration, wound vac in place. - Constitutional no acute distress - Routine HEENT Exam Head: Present: normocephalic, atraumatic Eye: Present: EOMI, PERRL ENT: Present: mucous membranes moist - Routine Neck Exam Present: supple - Routine Chest/Breast/Axilla Exam Chest wall: Absent: tenderness Breast: Absent: tenderness, induration Axillae: Absent: lymphadenopathy - Routine Respiratory Exam Present: decreased breath sounds, CTA bilaterally - Routine Cardiovascular Exam Present: RRR - Routine Abdominal Exam Present: soft, normoactive bowel sounds - Routine Extremities Exam Absent: cyanosis, clubbing - Routine Skin Exam Present: intact - Routine Neurological Exam Present: alert, oriented X3 - Routine Psychiatric Exam Present: normal affect Results - Labs CBC & Chem 7: 11/20/17 02:37 11/20/17 02:37 Labs: Laboratory Results - last 24 hr 11/17/17 11/17/17 11/17/17 12:17 12:17 12:17 WBC 13.8 H RBC 4.01 Hgb 10.3 L Hct 33.2 L MCV 82.7 MCH 25.7 L MCHC 31.0 L RDW 14.9 Plt Count 564 H MPV 8.9 Neut % (Auto) 75.9 H Lymph % (Auto) 12.8 Lincoln % (Auto) 10.6 H Eos % (Auto) 0.3 Baso % (Auto) 0.4 Neut # (Auto) 10.5 H Lymph # (Auto) 1.8 Lincoln # (Auto) 1.5 H Eos # (Auto) 0.0 Baso # (Auto) 0.1 WBC Differential . Differential Comment Auto diff final PT INR APTT Puncture Site Patient Temperature O2 Saturation ABG pH ABG pCO2 ABG pO2 ABG HCO3 ABG O2 Content ABG Base Excess ABG Methemoglobin Hermilo Test Hemoglobin Carboxyhemoglobin Inspired O2 Critical Value Sodium 127 L Potassium 5.0 Chloride 91 L Carbon Dioxide 17.6 L Anion Gap 18 H BUN 19 H Creatinine 1.70 H Estimated GFR 40 L POC Glucose Random Glucose 552 H* Lactic Acid 2.2 H Calcium 8.9 Total Bilirubin AST ALT Alkaline Phosphatase Total Protein Albumin Triglycerides Cholesterol LDL Cholesterol, Calc HDL Cholesterol Cholesterol/HDL Ratio Beta-Hydroxybutyric Acd 11/17/17 11/17/17 11/17/17 14:47 14:58 16:11 WBC RBC Hgb Hct MCV MCH MCHC RDW Plt Count MPV Neut % (Auto) Lymph % (Auto) Lincoln % (Auto) Eos % (Auto) Baso % (Auto) Neut # (Auto) Lymph # (Auto) Lincoln # (Auto) Eos # (Auto) Baso # (Auto) WBC Differential Differential Comment PT 11.2 INR 1.1 APTT 30.1 Puncture Site Right radial Patient Temperature 98.6 O2 Saturation 96 ABG pH 7.42 ABG pCO2 25 L ABG pO2 98 ABG HCO3 16 L* ABG O2 Content 14.6 ABG Base Excess -7.6 L ABG Methemoglobin 0.8 Hermilo Test Present Hemoglobin 10.8 L Carboxyhemoglobin 1.5 Inspired O2 21 Critical Value Yes Sodium Potassium Chloride Carbon Dioxide Anion Gap BUN Creatinine Estimated GFR POC Glucose 487 H* Random Glucose Lactic Acid Calcium Total Bilirubin AST ALT Alkaline Phosphatase Total Protein Albumin Triglycerides Cholesterol LDL Cholesterol, Calc HDL Cholesterol Cholesterol/HDL Ratio Beta-Hydroxybutyric Acd 11/17/17 11/17/17 11/17/17 16:14 17:50 17:52 WBC RBC Hgb Hct MCV MCH MCHC RDW Plt Count MPV Neut % (Auto) Lymph % (Auto) Lincoln % (Auto) Eos % (Auto) Baso % (Auto) Neut # (Auto) Lymph # (Auto) Lincoln # (Auto) Eos # (Auto) Baso # (Auto) WBC Differential Differential Comment PT INR APTT Puncture Site Patient Temperature O2 Saturation ABG pH ABG pCO2 ABG pO2 ABG HCO3 ABG O2 Content ABG Base Excess ABG Methemoglobin Hermilo Test Hemoglobin Carboxyhemoglobin Inspired O2 Critical Value Sodium Potassium Chloride Carbon Dioxide Anion Gap BUN Creatinine Estimated GFR POC Glucose 401 H Random Glucose Lactic Acid 1.0 Calcium Total Bilirubin AST ALT Alkaline Phosphatase Total Protein Albumin Triglycerides Cholesterol LDL Cholesterol, Calc HDL Cholesterol Cholesterol/HDL Ratio Beta-Hydroxybutyric Acd 4.58 H 11/17/17 11/18/17 11/18/17 22:26 02:07 03:55 WBC RBC Hgb Hct MCV MCH MCHC RDW Plt Count MPV Neut % (Auto) Lymph % (Auto) Lincoln % (Auto) Eos % (Auto) Baso % (Auto) Neut # (Auto) Lymph # (Auto) Lincoln # (Auto) Eos # (Auto) Baso # (Auto) WBC Differential Differential Comment PT INR APTT Puncture Site Patient Temperature O2 Saturation ABG pH ABG pCO2 ABG pO2 ABG HCO3 ABG O2 Content ABG Base Excess ABG Methemoglobin Hermilo Test Hemoglobin Carboxyhemoglobin Inspired O2 Critical Value Sodium Potassium Chloride Carbon Dioxide Anion Gap BUN Creatinine Estimated GFR POC Glucose 315 H 267 H Random Glucose Lactic Acid 0.9 Calcium Total Bilirubin AST ALT Alkaline Phosphatase Total Protein Albumin Triglycerides Cholesterol LDL Cholesterol, Calc HDL Cholesterol Cholesterol/HDL Ratio Beta-Hydroxybutyric Acd 11/18/17 11/18/17 11/18/17 03:55 03:55 06:14 WBC 11.2 H RBC 3.47 L Hgb 9.0 L Hct 28.2 L MCV 81.1 MCH 25.9 L MCHC 31.9 L RDW 14.4 Plt Count 486 H MPV 8.4 Neut % (Auto) 72.3 H Lymph % (Auto) 15.6 Lincoln % (Auto) 10.9 H Eos % (Auto) 0.7 Baso % (Auto) 0.5 Neut # (Auto) 8.1 H Lymph # (Auto) 1.8 Lincoln # (Auto) 1.2 H Eos # (Auto) 0.1 Baso # (Auto) 0.1 WBC Differential . Differential Comment Auto diff final PT INR APTT Puncture Site Patient Temperature O2 Saturation ABG pH ABG pCO2 ABG pO2 ABG HCO3 ABG O2 Content ABG Base Excess ABG Methemoglobin Hermilo Test Hemoglobin Carboxyhemoglobin Inspired O2 Critical Value Sodium 134 L Potassium 4.2 D Chloride 102 D Carbon Dioxide 20.5 L Anion Gap 12 BUN 14 Creatinine 1.25 H Estimated GFR 56 L POC Glucose 242 H Random Glucose 238 H D Lactic Acid Calcium 8.2 L Total Bilirubin 0.3 AST 15 ALT 7 L Alkaline Phosphatase 114 Total Protein 7.0 Albumin 1.9 L Triglycerides 108 Cholesterol 124 LDL Cholesterol, Calc 70 HDL Cholesterol 32.9 L Cholesterol/HDL Ratio 3.76 Beta-Hydroxybutyric Acd - Imaging Impressions Chest X-Ray 11/17/17 14:09 CONCLUSION: No acute intrathoracic disease. Assessment and Plan - Plan Sepsis present on admission Mons pubis abscess status post I&D Right thigh/buttock abscess status post I&D and wound VAC placement Diabetes type 2 uncontrolled prior history abdominal wall abscess that required incision and drainage as well as antibiotics Recommendations Continue vancomycin target trough 10-15 Start Zosyn IV Follow cultures Follow clinically It appears this plan for further washout of these abscesses. Discussed with patient as well as daughter in the room Discussed with STACY
[2017-11-18] MEDS: Piperacil/Tazo 3.375 GM Premix 50 ML IV.SIG SCH ×2 (13:26→18:34)
[2017-11-18] MEDS: Vancomycin Inj 1,750 MG in Sodium Chlor 0.9% Inj 500 ML IV.SIG SCH (13:26)
--- NOTE | 2017-11-18 13:26 | P.PN ---
Subjective Interval history: Pain in her groin is fairly controlled with meds NO fever or chills overnight No n/v/d/c. MRSA on wound covered by vanco carie,. ID ff as well Physical Exam Vital signs: Vital Signs 11/17/17 14:35 11/17/17 16:15 11/17/17 19:36 Temperature 100.3 F H Pulse Rate 105 H 95 H Respiratory Rate 18 16 18 Blood Pressure 144/74 H 141/68 H Pulse Oximetry 100 99 11/17/17 22:01 11/17/17 22:05 11/17/17 22:15 Temperature 98.5 F Pulse Rate 92 H 91 H Respiratory Rate 14 14 Blood Pressure 96/55 L 114/52 L Pulse Oximetry 100 100 100 11/17/17 22:30 11/17/17 22:45 11/17/17 23:00 Temperature Pulse Rate 85 83 86 Respiratory Rate 16 16 17 Blood Pressure 93/46 L 88/51 L 96/51 L Pulse Oximetry 100 100 100 11/17/17 23:15 11/17/17 23:30 11/17/17 23:45 Temperature Pulse Rate 87 84 85 Respiratory Rate 16 17 15 Blood Pressure 94/53 L 110/65 118/64 Pulse Oximetry 100 100 100 11/18/17 00:00 11/18/17 04:00 11/18/17 08:00 Temperature 98.1 F 98.4 F 98.3 F Pulse Rate 88 92 H 74 Respiratory Rate 18 18 19 Blood Pressure 117/65 111/61 101/66 Pulse Oximetry 98 98 98 11/18/17 12:00 Temperature 98.4 F Pulse Rate 92 H Respiratory Rate 18 Blood Pressure 129/75 Pulse Oximetry 18 L Intake & Output 11/17/17 11/18/17 11/18/17 18:59 06:59 18:59 Intake Total 1000 / 1000 4300 / 4300 Output Total 1050 / 1050 50 / 50 Balance 1000 / 1000 3250 / 3250 -50 / -50 Weight 113.398 kg Intake: IV 1000 / 1000 2250 / 2250 1/2 Normal Saline Inj 1,000 ML 0 / 0 @ 100 mls/hr IV.CONT .Q10H [facility] Rx#:[id number] NS Inj 1,000 ML @ 125 mls/hr IV 1000 / 1000 1000 / 1000 .SIG .Q8H [facility] Rx#:[id number] Vancomycin Inj 1,000 MG In NS 250 / 250 Inj 250 ML @ 250 mls/hr IV.SIG STAT STA Rx#:[id number] Anesthesia Amount 2049 Output: Urine 1000 / 1000 Estimated Blood Loss 50 / 50 Wound Drainage 50 / 50 Right Thigh 50 / 50 Other: # Incontinent Voids 1 Narrative: GENERAL: pleasant 42 yo female, in nad. SKIN: Warm and dry. CARDIOVASCULAR: Regular rate and rhythm without murmurs, gallops, or rubs. RESPIRATORY: Breath sounds equal bilaterally. No accessory muscle use. GASTROINTESTINAL: Abdomen soft, non-tender, nondistended. MUSCULOSKELETAL: No cyanosis, or edema. BACK: Nontender without obvious deformity. No CVA tenderness. Results - Labs CBC & Chem 7: 11/18/17 03:55 11/18/17 03:55 Laboratory Results - last 24 hr 11/17/17 11/17/17 11/17/17 14:47 14:58 16:11 WBC RBC Hgb Hct MCV MCH MCHC RDW Plt Count MPV Neut % (Auto) Lymph % (Auto) Howard % (Auto) Eos % (Auto) Baso % (Auto) Neut # (Auto) Lymph # (Auto) Howard # (Auto) Eos # (Auto) Baso # (Auto) WBC Differential Differential Comment PT 11.2 INR 1.1 APTT 30.1 Puncture Site Right radial Patient Temperature 98.6 O2 Saturation 96 ABG pH 7.42 ABG pCO2 25 L ABG pO2 98 ABG HCO3 16 L* ABG O2 Content 14.6 ABG Base Excess -7.6 L ABG Methemoglobin 0.8 Hermilo Test Present Hemoglobin 10.8 L Carboxyhemoglobin 1.5 Inspired O2 21 Critical Value Yes Sodium Potassium Chloride Carbon Dioxide Anion Gap BUN Creatinine Estimated GFR POC Glucose 487 H* Random Glucose Lactic Acid Calcium Total Bilirubin AST ALT Alkaline Phosphatase Total Protein Albumin Triglycerides Cholesterol LDL Cholesterol, Calc HDL Cholesterol Cholesterol/HDL Ratio Beta-Hydroxybutyric Acd 11/17/17 11/17/17 11/17/17 16:14 17:50 17:52 WBC RBC Hgb Hct MCV MCH MCHC RDW Plt Count MPV Neut % (Auto) Lymph % (Auto) Howard % (Auto) Eos % (Auto) Baso % (Auto) Neut # (Auto) Lymph # (Auto) Howard # (Auto) Eos # (Auto) Baso # (Auto) WBC Differential Differential Comment PT INR APTT Puncture Site Patient Temperature O2 Saturation ABG pH ABG pCO2 ABG pO2 ABG HCO3 ABG O2 Content ABG Base Excess ABG Methemoglobin Hermilo Test Hemoglobin Carboxyhemoglobin Inspired O2 Critical Value Sodium Potassium Chloride Carbon Dioxide Anion Gap BUN Creatinine Estimated GFR POC Glucose 401 H Random Glucose Lactic Acid 1.0 Calcium Total Bilirubin AST ALT Alkaline Phosphatase Total Protein Albumin Triglycerides Cholesterol LDL Cholesterol, Calc HDL Cholesterol Cholesterol/HDL Ratio Beta-Hydroxybutyric Acd 4.58 H 11/17/17 11/18/17 11/18/17 22:26 02:07 03:55 WBC RBC Hgb Hct MCV MCH MCHC RDW Plt Count MPV Neut % (Auto) Lymph % (Auto) Howard % (Auto) Eos % (Auto) Baso % (Auto) Neut # (Auto) Lymph # (Auto) Howard # (Auto) Eos # (Auto) Baso # (Auto) WBC Differential Differential Comment PT INR APTT Puncture Site Patient Temperature O2 Saturation ABG pH ABG pCO2 ABG pO2 ABG HCO3 ABG O2 Content ABG Base Excess ABG Methemoglobin Hermilo Test Hemoglobin Carboxyhemoglobin Inspired O2 Critical Value Sodium Potassium Chloride Carbon Dioxide Anion Gap BUN Creatinine Estimated GFR POC Glucose 315 H 267 H Random Glucose Lactic Acid 0.9 Calcium Total Bilirubin AST ALT Alkaline Phosphatase Total Protein Albumin Triglycerides Cholesterol LDL Cholesterol, Calc HDL Cholesterol Cholesterol/HDL Ratio Beta-Hydroxybutyric Acd 11/18/17 11/18/17 11/18/17 03:55 03:55 06:14 WBC 11.2 H RBC 3.47 L Hgb 9.0 L Hct 28.2 L MCV 81.1 MCH 25.9 L MCHC 31.9 L RDW 14.4 Plt Count 486 H MPV 8.4 Neut % (Auto) 72.3 H Lymph % (Auto) 15.6 Howard % (Auto) 10.9 H Eos % (Auto) 0.7 Baso % (Auto) 0.5 Neut # (Auto) 8.1 H Lymph # (Auto) 1.8 Howard # (Auto) 1.2 H Eos # (Auto) 0.1 Baso # (Auto) 0.1 WBC Differential . Differential Comment Auto diff final PT INR APTT Puncture Site Patient Temperature O2 Saturation ABG pH ABG pCO2 ABG pO2 ABG HCO3 ABG O2 Content ABG Base Excess ABG Methemoglobin Hermilo Test Hemoglobin Carboxyhemoglobin Inspired O2 Critical Value Sodium 134 L Potassium 4.2 D Chloride 102 D Carbon Dioxide 20.5 L Anion Gap 12 BUN 14 Creatinine 1.25 H Estimated GFR 56 L POC Glucose 242 H Random Glucose 238 H D Lactic Acid Calcium 8.2 L Total Bilirubin 0.3 AST 15 ALT 7 L Alkaline Phosphatase 114 Total Protein 7.0 Albumin 1.9 L Triglycerides 108 Cholesterol 124 LDL Cholesterol, Calc 70 HDL Cholesterol 32.9 L Cholesterol/HDL Ratio 3.76 Beta-Hydroxybutyric Acd 11/18/17 13:00 WBC RBC Hgb Hct MCV MCH MCHC RDW Plt Count MPV Neut % (Auto) Lymph % (Auto) Howard % (Auto) Eos % (Auto) Baso % (Auto) Neut # (Auto) Lymph # (Auto) Howard # (Auto) Eos # (Auto) Baso # (Auto) WBC Differential Differential Comment PT INR APTT Puncture Site Patient Temperature O2 Saturation ABG pH ABG pCO2 ABG pO2 ABG HCO3 ABG O2 Content ABG Base Excess ABG Methemoglobin Hermilo Test Hemoglobin Carboxyhemoglobin Inspired O2 Critical Value Sodium Potassium Chloride Carbon Dioxide Anion Gap BUN Creatinine Estimated GFR POC Glucose 204 H Random Glucose Lactic Acid Calcium Total Bilirubin AST ALT Alkaline Phosphatase Total Protein Albumin Triglycerides Cholesterol LDL Cholesterol, Calc HDL Cholesterol Cholesterol/HDL Ratio Beta-Hydroxybutyric Acd Microbiology 11/17/17 14:50 Blood - Peripheral Aerobic Blood Culture - Preliminary No growth in 1 day 11/17/17 14:50 Blood - Peripheral Anaerobic Blood Culture - Preliminary No growth in 1 day 11/17/17 14:58 Blood - Peripheral Aerobic Blood Culture - Preliminary No growth in 1 day 11/17/17 14:58 Blood - Peripheral Anaerobic Blood Culture - Preliminary No growth in 1 day 11/17/17 21:14 Abscess - Thigh Gram Stain - Final 11/17/17 23:26 Abscess - Thigh Fungal Smear - Final Rare budding yeast 11/17/17 14:50 Abscess - Abdominal Gram Stain - Final - Imaging Impressions Chest X-Ray 11/17/17 14:09 CONCLUSION: No acute intrathoracic disease. Assessment and Plan - Plan 1. Sepsis. 2. Right thigh abscess. 3. Hyponatremia. 4. Metabolic acidosis. 6. AKA. Diabetes mellitus type 2 with hyperglycemia. 4. Lactic acidosis. 1. Severe sepsis present on admission with leukocytosis, right thigh abscess, tachycardia as well as fever. Wound growing MRSA Monitor on telemetry, placed on IV fluids, continue broad-spectrum IV antibiotics with IV vancomycin IV Zosyn. Surgery has been consulted for incision and drainage for ID consultation ff . Follow-up blood cultures obtained in the ED. 2. Surgery consulted. Patient for incision and drainage later today. Keep n.p.o. Pain control of right thigh abscess with oral Percocet and IV morphine for breakthrough pain. 3. Hyponatremia likely pseudohyponatremia from severe hyperglycemia. Correct hyperglycemia with subcutaneous insulin. 4. Metabolic acidosis. Likely secondary to elevated lactic acid level. Monitor BMP. Treated with IV fluids and IV antibiotics. 5. Diabetes mellitus type 2 with hyperglycemia. Patient with blood sugars in the 500s range. Patient is noncompliant with diabetic treatment. Check hemoglobin A1c. Check lipid profile. We will start the patient is starting to the patient is diabetic. Placed on basal bolus therapy with insulin Levemir and insulin NovoLog. Placed on SSI with insulin NovoLog. Monitor Accu-Cheks. Diabetic diet. extension educator consult. 6. Elevated lactic acid level. Secondary to sepsis and dehydration. Treated with IV fluids. Monitor lactic acid levels. 7. GI prophylaxis Start on a PPI. 8. DVT prophylaxis Patient is at high risk due to obesity, sepsis, active infection, dehydration. We will start the patient on Lovenox subcutaneously to be held prior to incision and drainage. Code Status: Full code Discussed Condition With: Patient, ED physician. Discharge Planning: Continue to monitor the medical floor. Discharge pending clinical improvement. iD also ff.
[2017-11-18] MEDS: Morphine Inj 30 MG/30 ML PCA.VIAL PCA PRN (13:34)
[2017-11-18 13:59] LABS: Hemoglobin A1c 19.1 % (4.3-6.0)
[2017-11-18] MEDS: Insulin Detemir Inj 1,000 UNIT/10 ML Vial SQ SCH (20:15)
[2017-11-19] MEDS: Piperacil/Tazo 3.375 GM Premix 50 ML IV.SIG SCH ×4 (00:47→20:29)
[2017-11-19] MEDS: Insulin NovoLOG Aspart Correctional Sugar Inj SQ SCH ×7 (00:57→20:29)
[2017-11-19] MEDS: Sod Chloride 0.9% Inj 1,000 ML IV.SIG SCH ×3 (01:03→20:31)
[2017-11-19] MEDS: Morphine Inj 30 MG/30 ML PCA.VIAL PCA PRN (04:10)
[2017-11-19] MEDS: Senna/Docusate Sodium 8.6/50 MG Tablet PO SCH ×2 (08:39→20:33)
[2017-11-19] MEDS: Vancomycin Inj 1,750 MG in Sodium Chlor 0.9% Inj 500 ML IV.SIG SCH (08:41)
[2017-11-19] MEDS ORDERED: Naloxone Inj 0.4 MG/ML Vial IV.PUSH PRN (10:53)
--- NOTE | 2017-11-19 11:00 | P.PNGS ---
Subjective Patient reports: still having pain (Complains of itching. Morphine [employer] still not effective.) Physical Exam Vital signs: Vital Signs 11/18/17 12:00 11/18/17 16:00 11/18/17 20:14 Temperature 98.4 F 97.4 F L 97.9 F Pulse Rate 92 H 84 83 Respiratory Rate 18 19 18 Blood Pressure 129/75 108/66 114/67 Pulse Oximetry 18 L 98 97 11/19/17 00:12 11/19/17 04:37 11/19/17 05:18 Temperature 97.7 F 98.0 F Pulse Rate 89 101 H Respiratory Rate 20 18 20 Blood Pressure 132/70 121/68 Pulse Oximetry 98 98 11/19/17 08:00 Temperature 97.8 F Pulse Rate 86 Respiratory Rate 16 Blood Pressure 115/55 L Pulse Oximetry 98 Intake & Output 11/18/17 11/19/17 11/19/17 18:59 06:59 18:59 Intake Total 1890 / 1890 4477.5 / 4477.5 50 / 50 Output Total 50 / 50 2300 / 2300 50 / 50 Balance 1840 / 1840 2177.5 / 2177.5 0 / 0 Weight 113.39 kg Intake: IV 1050 / 1050 3717.5 / 3717.5 50 / 50 Zosyn 3.375 GM Premix 50 ML @ 50 / 50 100 / 100 50 / 50 100 mls/hr IV.SIG Q6H JEANNA Rx#: [id number] NS Inj 1,000 ML @ 125 mls/hr IV 1000 / 1000 1999 / 1999 .SIG .Q8H JEANNA Rx#:[id number] Vancomycin Inj 1,750 MG In NS 517.5 / 517.5 Inj 500 ML @ 250 mls/hr IV.SIG Q18H JEANNA Rx#:[id number] Oral 840 / 840 760 / 760 Output: Urine 2200 / 2200 Wound Drainage 50 / 50 100 / 100 50 / 50 Right Thigh 50 / 50 100 / 100 50 / 50 Other: # Voids 3 Narrative: VAC dressing intact, no evidence of leak. Assessment and Plan - Plan Status post incision and drainage debridement and VAC dressing placement of abscesses of the right thigh buttock and suprapubic area. Plan VAC dressing change tomorrow. Preoperative orders and consent have been obtained.
[2017-11-19] MEDS ORDERED: [UNRECOGNIZED DRUG - REMARK] OTHER SCH (11:15)
[2017-11-19] MEDS: Fluconazole 100 MG Tablet PO SCH (13:33)
[2017-11-19] MEDS: HYDROmorphone PCA Inj 6 MG/30 ML PCA.VIAL PCA PRN (13:35)
--- NOTE | 2017-11-19 17:53 | P.PN ---
Physical Exam Vital signs: Vital Signs 11/18/17 20:14 11/19/17 00:12 11/19/17 04:37 Temperature 97.9 F 97.7 F 98.0 F Pulse Rate 83 89 101 H Respiratory Rate 18 20 18 Blood Pressure 114/67 132/70 121/68 Pulse Oximetry 97 98 98 11/19/17 05:18 11/19/17 08:00 11/19/17 12:00 Temperature 97.8 F 98.1 F Pulse Rate 86 91 H Respiratory Rate 20 16 17 Blood Pressure 115/55 L 131/71 Pulse Oximetry 98 98 11/19/17 16:00 Temperature 97.9 F Pulse Rate 94 H Respiratory Rate 16 Blood Pressure 109/64 Pulse Oximetry 99 Intake & Output 11/18/17 11/19/17 11/19/17 18:59 06:59 18:59 Intake Total 1890 / 1890 4477.5 / 4477.5 567.6 / 567.6 Output Total 50 / 50 2300 / 2300 50 / 50 Balance 1840 / 1840 2177.5 / 2177.5 517.6 / 517.6 Weight 113.39 kg 113.39 kg Intake: IV 1050 / 1050 3717.5 / 3717.5 567.6 / 567.6 Zosyn 3.375 GM Premix 50 ML @ 50 / 50 100 / 100 50 / 50 100 mls/hr IV.SIG Q6H JEANNA Rx#: [id number] NS Inj 1,000 ML @ 125 mls/hr IV 1000 / 1000 1999 / 1999 .SIG .Q8H JEANNA Rx#:[id number] Vancomycin Inj 1,750 MG In NS 517.5 / 517.5 517.6 / 517.6 Inj 500 ML @ 250 mls/hr IV.SIG Q18H JEANNA Rx#:[id number] Oral 840 / 840 760 / 760 Output: Urine 2200 / 2200 Wound Drainage 50 / 50 100 / 100 50 / 50 Right Thigh 50 / 50 100 / 100 50 / 50 Other: # Voids 3 Weight On Admission 113.39 kg Narrative: Subjective Interval history: Pain in her groin is fairly controlled with meds, however she complains of itchy skin with morphine. Discussed with Dr. rosi Villegas, which morphine to Dilaudid COMPLIANCE SPEC pump. Patient says she has pain with movement mostly. NO fever or chills overnight No n/v/d/c. Physical exam: GENERAL: pleasant 42 yo female, in nad. SKIN: Warm and dry. CARDIOVASCULAR: Regular rate and rhythm without murmurs, gallops, or rubs. RESPIRATORY: Breath sounds equal bilaterally. No accessory muscle use. GASTROINTESTINAL: Abdomen soft, non-tender, nondistended. MUSCULOSKELETAL: No cyanosis, or edema. BACK: Nontender without obvious deformity. No CVA tenderness. Assessment and Plan 1. Sepsis. 2. Right thigh abscess. 3. Hyponatremia. 4. Metabolic acidosis. 6. AKA. Diabetes mellitus type 2 with hyperglycemia. 4. Lactic acidosis. 1. Severe sepsis present on admission with leukocytosis, right thigh abscess, tachycardia as well as fever. Wound growing MRSA Monitor on telemetry, placed on IV fluids, continue broad-spectrum IV antibiotics with IV vancomycin IV Zosyn. Surgery has been consulted for incision and drainage for ID consultation ff . Follow-up blood cultures obtained in the ED. 2. Surgery consulted. Patient s/p ncision and drainage Pain control of right thigh abscess with Dilaudid COMPLIANCE SPEC pump per surgeon 3. Hyponatremia likely pseudohyponatremia from severe hyperglycemia. Correct hyperglycemia with subcutaneous insulin. 4. Metabolic acidosis. Likely secondary to elevated lactic acid level. Monitor BMP. Treated with IV fluids and IV antibiotics. 5. Diabetes mellitus type 2 with hyperglycemia. Patient with blood sugars in the 500s range. Patient is noncompliant with diabetic treatment. Check hemoglobin A1c. Check lipid profile. We will start the patient is starting to the patient is diabetic. Placed on basal bolus therapy with insulin Levemir and insulin NovoLog. Placed on SSI with insulin NovoLog. Monitor Accu-Cheks. Diabetic diet. outreach educator consult. 6. Elevated lactic acid level. Secondary to sepsis and dehydration. Treated with IV fluids. Monitor lactic acid levels. 7. GI prophylaxis Start on a PPI. 8. DVT prophylaxis Patient is at high risk due to obesity, sepsis, active infection, dehydration. We will start the patient on Lovenox subcutaneously to be held prior to incision and drainage. Code Status: Full code Discussed Condition With: Patient, ED physician. Discharge Planning: Continue to monitor the medical floor. Discharge pending clinical improvement. iD also ff. Results - Labs CBC & Chem 7: 11/18/17 03:55 11/18/17 03:55 Laboratory Results - last 24 hr 11/18/17 11/19/17 11/19/17 18:37 00:52 06:24 POC Glucose 178 H 232 H 213 H 11/19/17 14:11 POC Glucose 121 H Microbiology 11/17/17 23:25 Abscess - Thigh Acid Fast Bacilli Smear - Final No acid fast bacilli seen 11/17/17 14:50 Blood - Peripheral Aerobic Blood Culture - Preliminary No growth in 2 days 11/17/17 14:50 Blood - Peripheral Anaerobic Blood Culture - Preliminary No growth in 2 days 11/17/17 14:58 Blood - Peripheral Aerobic Blood Culture - Preliminary No growth in 2 days 11/17/17 14:58 Blood - Peripheral Anaerobic Blood Culture - Preliminary No growth in 2 days 11/17/17 21:14 Abscess - Thigh Gram Stain - Final 11/17/17 21:14 Abscess - Thigh Wound Culture - Final Shauna albicans 11/17/17 14:50 Abscess - Abdominal Gram Stain - Final 11/17/17 14:50 Abscess - Abdominal Wound Culture - Final S. aureus MRSA Assessment and Plan - Plan 1. Sepsis. 2. Right thigh abscess. 3. Hyponatremia. 4. Metabolic acidosis. 6. AKA. Diabetes mellitus type 2 with hyperglycemia. 4. Lactic acidosis. 1. Severe sepsis present on admission with leukocytosis, right thigh abscess, tachycardia as well as fever. Wound growing MRSA Monitor on telemetry, placed on IV fluids, continue broad-spectrum IV antibiotics with IV vancomycin IV Zosyn. Surgery has been consulted for incision and drainage for ID consultation ff . Follow-up blood cultures obtained in the ED. 2. Surgery consulted. Patient for incision and drainage later today. Keep n.p.o. Pain control of right thigh abscess with oral Percocet and IV morphine for breakthrough pain. 3. Hyponatremia likely pseudohyponatremia from severe hyperglycemia. Correct hyperglycemia with subcutaneous insulin. 4. Metabolic acidosis. Likely secondary to elevated lactic acid level. Monitor BMP. Treated with IV fluids and IV antibiotics. 5. Diabetes mellitus type 2 with hyperglycemia. Patient with blood sugars in the 500s range. Patient is noncompliant with diabetic treatment. Check hemoglobin A1c. Check lipid profile. We will start the patient is starting to the patient is diabetic. Placed on basal bolus therapy with insulin Levemir and insulin NovoLog. Placed on SSI with insulin NovoLog. Monitor Accu-Cheks. Diabetic diet. outreach educator consult. 6. Elevated lactic acid level. Secondary to sepsis and dehydration. Treated with IV fluids. Monitor lactic acid levels. 7. GI prophylaxis Start on a PPI. 8. DVT prophylaxis Patient is at high risk due to obesity, sepsis, active infection, dehydration. We will start the patient on Lovenox subcutaneously to be held prior to incision and drainage. Code Status: Full code Discussed Condition With: Patient, ED physician. Discharge Planning: Continue to monitor the medical floor. Discharge pending clinical improvement. iD also ff.
[2017-11-19] MEDS: Insulin Detemir Inj 1,000 UNIT/10 ML Vial SQ SCH (20:30)
[2017-11-20] MEDS: Piperacil/Tazo 3.375 GM Premix 50 ML IV.SIG SCH ×4 (01:12→20:27)
[2017-11-20] MEDS: Insulin NovoLOG Aspart Correctional Sugar Inj SQ SCH ×7 (01:14→18:11)
[2017-11-20] MEDS ORDERED: Pharmacy Ordered Lab Info OTHER ONE (01:45)
[2017-11-20 03:01] LABS: Baso # (Auto) 0.1 th/mm3 (0.0-0.2); Baso % (Auto) 0.8 % (0.0-2.0); Eos # (Auto) 0.2 th/mm3 (0.0-0.4); Eos % (Auto) 2.1 % (0.0-4.0); Hematocrit 24.7 % (35.0-46.0); Hemoglobin 7.8 gm/dL (11.6-15.3); Lymph # (Auto) 2.3 th/mm3 (1.0-4.8); Lymph % (Auto) 22.8 % (9.0-44.0); Mean Corpuscular HGB Conc 31.7 % (32.0-36.0); Mean Corpuscular Hemoglobin 25.8 pg (27.0-34.0); Mean Corpuscular Volume 81.4 fL (80.0-100.0); Mean Platelet Volume 8.3 fL (7.0-11.0); Mono # (Auto) 1.2 th/mm3 (0.0-0.9); Mono % (Auto) 11.6 % (0.0-8.0); Neut # (Auto) 6.4 th/mm3 (1.8-7.7); Neut % (Auto) 62.7 % (16.0-70.0); Platelet Count 553 th/mm3 (150-450); Red Blood Count 3.03 mil/mm3 (4.00-5.30); Red Cell Distribution Width 14.7 % (11.6-17.2); White Blood Count 10.2 th/mm3 (4.0-11.0)
[2017-11-20 03:10] LABS: Alanine Aminotransferase 11 U/L (10-53); Albumin 1.9 g/dL (3.4-5.0); Anion Gap 9 meq/L (5-15); Aspartate Aminotransferase 14 U/L (15-37); Blood Urea Nitrogen 11 mg/dL (7-18); Calcium 7.8 mg/dL (8.5-10.1); Carbon Dioxide 23.1 meq/L (21.0-32.0); Chloride 107 meq/L (98-107); Glomerular Filtration Rate 48 mL/min (>89); Glucose,Random 153 mg/dL (74-106); Potassium 4.2 meq/L (3.5-5.1); Sodium 139 meq/L (136-145)
[2017-11-20 03:13] LABS: Alkaline Phosphatase 115 U/L (45-117)
[2017-11-20] MEDS: Vancomycin Inj 1,750 MG in Sodium Chlor 0.9% Inj 500 ML IV.SIG SCH ×2 (03:43→14:01)
[2017-11-20] MEDS: HYDROmorphone PCA Inj 6 MG/30 ML PCA.VIAL PCA PRN (06:23)
[2017-11-20] MEDS: Fluconazole 100 MG Tablet PO SCH (09:45)
[2017-11-20] MEDS: Senna/Docusate Sodium 8.6/50 MG Tablet PO SCH ×2 (09:45→20:28)
[2017-11-20] MEDS ORDERED: fentaNYL Citrate Inj 100 MCG/2 ML Ampul ONE (10:38)
[2017-11-20] MEDS ORDERED: Ketamine Inj 50 MG/5 ML Syringe IV.PUSH ONE (10:38)
[2017-11-20] MEDS ORDERED: Famotidine PF Inj 20 MG/2 ML Vial ONE (10:39)
--- NOTE | 2017-11-20 10:56 | P.OP ---
- Preoperative Diagnosis (1) Abscess - Postoperative Diagnosis (1) Abscess Date of procedure: 11/20/17 Procedure: I and D with excisional debridement of necrotic soft tissue with vac change Anesthesia: GETA Surgeon: Viral Russo MD Estimated blood loss (mL): 10 Pathology: none sent Operation and Findings: scant necrotic debris
[2017-11-20] MEDS ORDERED: Lidocaine PF 1% Inj 5 ML Syringe INFILTRATN ONE (12:00)
[2017-11-20] MEDS ORDERED: Ketorolac Inj 30 MG/ML (IVP) Vial IV.PUSH ONE (12:00)
[2017-11-20] MEDS ORDERED: *Meperidine Inj 25 MG/ML Vial PERIprocedural Use ONLY ONE (12:40)
[2017-11-20] MEDS ORDERED: *morphine SULFATE 4 MG/ML PERIprocedure ONLY ONE (12:48)
[2017-11-20] MEDS: Sod Chloride 0.9% Inj 1,000 ML IV.SIG SCH ×2 (13:52→23:19)
--- NOTE | 2017-11-20 15:26 | P.PNID ---
Subjective Remarks: is a 42-year-old -[place] female with past medical history significant for diabetes mellitus. Patient initially presented to [facility] where she was prescribed Bactrim oral and after 3 days been she did not improve she went to a local urgent care. At the urgent care she was prescribed clindamycin and they may have been local incision made to drain this. Patient now presents to the emergency department at [facility] for evaluation of a boil on the right inner thigh that is approximately 3 weeks old at this point. Patient reports being compliant with Bactrim as well as clindamycin and is almost at the end of the therapy and does not seem to be improving. Patient describes moderately severe pain that is nonradiating present mostly in her right inner thigh area. She describes this as aching and sharp and it is worse with pressure and on sitting down. Has been taking ibuprofen for pain as well as fever. Reports decreased appetite. She reports that her blood sugars have been running high and she feels feverish with chills. She had a temperature of 101 Fahrenheit prior to arrival. Patient met sepsis criteria and workup was initiated. Patient underwent imaging as well as call patient underwent irrigation and debridement of these abscesses by Dr. Russo. It appears that these are fairly large abscesses predominantly in the pubis as well as on the right inner thigh area. Infectious diseases consulted for evaluation and management of groin and thigh abscesses, as well as sepsis. Patient reports objective fevers and chills but denies any night sweats. Patient reports compliance with medications. Overnight events reviewed s/p debridement in OR again today with Wound vac placement. No fever No rash no diarrhea Antibiotics: Zosyn IV Vanco IV Diflucan Lines: Lines ok Past Medical History: reviewed Allergies/Adverse Reactions: Allergies levofloxacin Allergy (Severe, Verified 11/17/17 15:40) Rash Objective Vital Signs 11/19/17 16:00 11/19/17 20:00 11/19/17 20:18 Temperature 97.9 F 98.9 F Pulse Rate 94 H 92 H Respiratory Rate 16 20 Blood Pressure 109/64 140/69 Pulse Oximetry 99 96 97 11/20/17 00:23 11/20/17 04:14 11/20/17 08:00 Temperature 98.2 F 100 F H Pulse Rate 102 H 103 H Respiratory Rate 18 20 Blood Pressure 138/73 126/64 Pulse Oximetry 96 98 95 11/20/17 12:07 11/20/17 12:15 11/20/17 12:30 Temperature 98.6 F Pulse Rate 95 H 94 H 96 H Respiratory Rate 20 15 13 Blood Pressure 121/57 L 129/63 148/68 H Pulse Oximetry 99 100 100 11/20/17 12:45 11/20/17 13:00 11/20/17 14:01 Temperature 98.7 F Pulse Rate 98 H 95 H Respiratory Rate 16 14 17 Blood Pressure 156/70 H 149/76 H Pulse Oximetry 100 100 Intake & Output 11/19/17 11/20/17 11/20/17 18:59 06:59 18:59 Intake Total 2567.6 / 2567.6 150 / 150 1350 / 1350 Output Total 152 / 152 20 / 20 Balance 2415.6 / 2415.6 150 / 150 1330 / 1330 Weight 113.39 kg 113.39 kg Intake: IV 1567.6 / 1567.6 150 / 150 350 / 350 LR 1000 mL Inj 1,000 ML @ 30 300 / 300 mls/hr IV.SIG .Q24H JEANNA Rx#: [id number] Zosyn 3.375 GM Premix 50 ML @ 50 / 50 150 / 150 50 / 50 100 mls/hr IV.SIG Q6H JEANNA Rx#: [id number] NS Inj 1,000 ML @ 125 mls/hr IV 1000 / 1000 .SIG .Q8H JEANNA Rx#:[id number] Vancomycin Inj 1,750 MG In NS 517.6 / 517.6 0 / 0 Inj 500 ML @ 250 mls/hr IV.SIG Q18H JEANNA Rx#:[id number] Oral 1000 / 1000 Anesthesia Amount 1000 / 1000 Output: Urine 2 / 2 Estimated Blood Loss 20 / 20 Wound Drainage 150 / 150 Right Thigh 150 / 150 Other: Post Void Residual 2 # Bowel Movements 0 Weight On Admission 113.39 kg 11/17/17 23:26 Abscess - Thigh Fungal Smear - Final Rare budding yeast 11/17/17 23:26 Abscess - Thigh Fungal Culture - Preliminary Yeast - ID to follow 11/17/17 14:50 Blood - Peripheral Aerobic Blood Culture - Preliminary No growth in 3 days 11/17/17 14:50 Blood - Peripheral Anaerobic Blood Culture - Preliminary No growth in 3 days 11/17/17 14:58 Blood - Peripheral Aerobic Blood Culture - Preliminary No growth in 3 days 11/17/17 14:58 Blood - Peripheral Anaerobic Blood Culture - Preliminary No growth in 3 days 11/17/17 23:25 Abscess - Thigh Acid Fast Bacilli Smear - Final No acid fast bacilli seen 11/17/17 23:25 Abscess - Thigh Mycobacterial Culture - Pending 11/17/17 21:14 Abscess - Thigh Gram Stain - Final 11/17/17 21:14 Abscess - Thigh Wound Culture - Final Shauna albicans 11/17/17 14:50 Abscess - Abdominal Gram Stain - Final 11/17/17 14:50 Abscess - Abdominal Wound Culture - Final S. aureus MRSA Lab - Hematology Results 11/20/17 02:37 WBC 10.2 RBC 3.03 L Hgb 7.8 L Hct 24.7 L MCV 81.4 MCH 25.8 L MCHC 31.7 L RDW 14.7 Plt Count 553 H MPV 8.3 Neut % (Auto) 62.7 Lymph % (Auto) 22.8 Banks % (Auto) 11.6 H Eos % (Auto) 2.1 Baso % (Auto) 0.8 Neut # (Auto) 6.4 Lymph # (Auto) 2.3 Banks # (Auto) 1.2 H Eos # (Auto) 0.2 Baso # (Auto) 0.1 WBC Differential . Differential Comment Auto diff final Lab - Chemistry Results 11/18/17 11/19/17 11/19/17 18:37 00:52 06:24 Sodium Potassium Chloride Carbon Dioxide Anion Gap BUN Creatinine Estimated GFR POC Glucose 178 H 232 H 213 H Random Glucose Calcium Total Bilirubin AST ALT Alkaline Phosphatase Total Protein Albumin 11/19/17 11/19/17 11/20/17 14:11 20:28 01:14 Sodium Potassium Chloride Carbon Dioxide Anion Gap BUN Creatinine Estimated GFR POC Glucose 121 H 158 H 157 H Random Glucose Calcium Total Bilirubin AST ALT Alkaline Phosphatase Total Protein Albumin 11/20/17 11/20/17 11/20/17 02:37 06:36 08:05 Sodium 139 Potassium 4.2 Chloride 107 Carbon Dioxide 23.1 Anion Gap 9 BUN 11 Creatinine 1.44 H Estimated GFR 48 L POC Glucose 252 H 200 H Random Glucose 153 H Calcium 7.8 L Total Bilirubin 0.2 AST 14 L ALT 11 Alkaline Phosphatase 115 Total Protein 7.0 Albumin 1.9 L 11/20/17 13:04 Sodium Potassium Chloride Carbon Dioxide Anion Gap BUN Creatinine Estimated GFR POC Glucose 200 H Random Glucose Calcium Total Bilirubin AST ALT Alkaline Phosphatase Total Protein Albumin Imaging: ITS Impressions Chest X-Ray 11/17/17 14:09 CONCLUSION: No acute intrathoracic disease. Physical Exam: GENERAL: Well-nourished well-developed, not in acute distress SKIN: Cool and dry, no generalized rash HEAD: Atraumatic. Normocephalic. No temporal or scalp tenderness. EYES: Pupils equal round and reactive. Scleral icterus. No injection or drainage. No petechia ENT: Nothing abnormal detected NECK: Trachea midline. Supple, nontender, no meningeal signs. CARDIOVASCULAR: HS audible. RESPIRATORY: Clear to auscultation bilaterally. GASTROINTESTINAL: Abdomen soft nontender. MUSCULOSKELETAL: Extremities without clubbing, cyanosis. NEUROLOGICAL: Alert oriented 3. Nonfocal. Psych cooperative IV line sites ok. Mons pubis with induration and tenderness packing noted. Right thigh and buttock area with induration, wound vac in place. Assessment and Plan - Plan Sepsis present on admission Mons pubis abscess status post I&D Right thigh/buttock abscess status post I&D and wound VAC placement Diabetes type 2 uncontrolled prior history abdominal wall abscess that required incision and drainage as well as antibiotics Recommendations Continue vancomycin target trough 10-15 DC Zosyn IV Continue Diflucan. Follow cultures Follow clinically will dw Surgery about further surgery plans and depth of infection. Discussed with patient as well as daughter in the room Discussed with STACY
--- NOTE | 2017-11-20 17:48 | P.PN ---
Physical Exam Vital signs: Vital Signs 11/19/17 20:00 11/19/17 20:18 11/20/17 00:23 Temperature 98.9 F 98.2 F Pulse Rate 92 H 102 H Respiratory Rate 20 18 Blood Pressure 140/69 138/73 Pulse Oximetry 96 97 96 11/20/17 04:14 11/20/17 08:00 11/20/17 12:00 Temperature 100 F H 100.0 F H 98.6 F Pulse Rate 103 H 107 H 99 H Respiratory Rate 20 20 18 Blood Pressure 126/64 115/58 L 155/73 H Pulse Oximetry 98 95 93 L 11/20/17 12:07 11/20/17 12:15 11/20/17 12:30 Temperature 98.6 F Pulse Rate 95 H 94 H 96 H Respiratory Rate 20 15 13 Blood Pressure 121/57 L 129/63 148/68 H Pulse Oximetry 99 100 100 11/20/17 12:45 11/20/17 13:00 11/20/17 14:01 Temperature 98.7 F Pulse Rate 98 H 95 H Respiratory Rate 16 14 17 Blood Pressure 156/70 H 149/76 H Pulse Oximetry 100 100 Intake & Output 11/19/17 11/20/17 11/20/17 18:59 06:59 18:59 Intake Total 2567.6 / 2567.6 150 / 150 1400 / 1400 Output Total 152 / 152 20 / 20 Balance 2415.6 / 2415.6 150 / 150 1380 / 1380 Weight 113.39 kg 113.39 kg Intake: IV 1567.6 / 1567.6 150 / 150 400 / 400 LR 1000 mL Inj 1,000 ML @ 30 300 / 300 mls/hr IV.SIG .Q24H JEANNA Rx#: [id number] Zosyn 3.375 GM Premix 50 ML @ 50 / 50 150 / 150 100 / 100 100 mls/hr IV.SIG Q6H JEANNA Rx#: [id number] NS Inj 1,000 ML @ 125 mls/hr IV 1000 / 1000 .SIG .Q8H JEANNA Rx#:[id number] Vancomycin Inj 1,750 MG In NS 517.6 / 517.6 0 / 0 Inj 500 ML @ 250 mls/hr IV.SIG Q18H JEANNA Rx#:[id number] Oral 1000 / 1000 Anesthesia Amount 1000 / 1000 Output: Urine 2 / 2 Estimated Blood Loss 20 / 20 Wound Drainage 150 / 150 Right Thigh 150 / 150 Other: Post Void Residual 2 # Bowel Movements 0 Weight On Admission 113.39 kg Narrative: Subjective Interval history: Pain in her groin is controlled with meds. On SATELLITE TV INSTALLER pump Went for I&D NO fever or chills overnight No n/v/d/c. Physical exam: GENERAL: pleasant 42 yo female, in nad. SKIN: Warm and dry. CARDIOVASCULAR: Regular rate and rhythm without murmurs, gallops, or rubs. RESPIRATORY: Breath sounds equal bilaterally. No accessory muscle use. GASTROINTESTINAL: Abdomen soft, non-tender, nondistended. MUSCULOSKELETAL: No cyanosis, or edema. BACK: Nontender without obvious deformity. No CVA tenderness. Assessment and Plan 1. Sepsis. 2. Right thigh abscess. 3. Hyponatremia. 4. Metabolic acidosis. 6. AKA. Diabetes mellitus type 2 with hyperglycemia. 4. Lactic acidosis. 1. Severe sepsis present on admission with leukocytosis, right thigh abscess, tachycardia as well as fever. Wound growing MRSA Monitor on telemetry, placed on IV fluids, continue broad-spectrum IV antibiotics with IV vancomycin IV Zosyn. Surgery has been consulted for incision and drainage for ID consultation ff . Follow-up blood cultures obtained in the ED. 2. Surgery consulted. Patient s/p incision and drainage Pain control of right thigh abscess with Dilaudid SATELLITE TV INSTALLER pump per surgeon I and D with excisional debridement of necrotic soft tissue with vac change again on 11/20/[address] Russo 3. Hyponatremia likely pseudohyponatremia from severe hyperglycemia. Correct hyperglycemia with subcutaneous insulin. 4. Metabolic acidosis. Likely secondary to elevated lactic acid level. Monitor BMP. Treated with IV fluids and IV antibiotics. 5. Diabetes mellitus type 2 with hyperglycemia. Patient with blood sugars in the 500s range. Patient is noncompliant with diabetic treatment. Check hemoglobin A1c. Check lipid profile. We will start the patient is starting to the patient is diabetic. Placed on basal bolus therapy with insulin Levemir and insulin NovoLog. Placed on SSI with insulin NovoLog. Monitor Accu-Cheks. Diabetic diet. adaptive physical educator consult. 6. Elevated lactic acid level. Secondary to sepsis and dehydration. Treated with IV fluids. Monitor lactic acid levels. 7. GI prophylaxis Start on a PPI. 8. DVT prophylaxis Patient is at high risk due to obesity, sepsis, active infection, dehydration. We will start the patient on Lovenox subcutaneously to be held prior to incision and drainage. Code Status: Full code Discussed Condition With: Patient, ED physician. Discharge Planning: Continue to monitor the medical floor. Discharge pending clinical improvement. ID also ff. S/P I&D 11/20/[address] Russo Results - Labs CBC & Chem 7: 11/20/17 02:37 11/20/17 02:37 Laboratory Results - last 24 hr 11/19/17 11/20/17 11/20/17 20:28 01:14 02:37 WBC RBC Hgb Hct MCV MCH MCHC RDW Plt Count MPV Neut % (Auto) Lymph % (Auto) Divide % (Auto) Eos % (Auto) Baso % (Auto) Neut # (Auto) Lymph # (Auto) Divide # (Auto) Eos # (Auto) Baso # (Auto) WBC Differential Differential Comment Sodium Potassium Chloride Carbon Dioxide Anion Gap BUN Creatinine Estimated GFR POC Glucose 158 H 157 H Random Glucose Calcium Total Bilirubin AST ALT Alkaline Phosphatase Total Protein Albumin Vancomycin Trough 23.5 H 11/20/17 11/20/17 11/20/17 02:37 02:37 06:36 WBC 10.2 RBC 3.03 L Hgb 7.8 L Hct 24.7 L MCV 81.4 MCH 25.8 L MCHC 31.7 L RDW 14.7 Plt Count 553 H MPV 8.3 Neut % (Auto) 62.7 Lymph % (Auto) 22.8 Divide % (Auto) 11.6 H Eos % (Auto) 2.1 Baso % (Auto) 0.8 Neut # (Auto) 6.4 Lymph # (Auto) 2.3 Divide # (Auto) 1.2 H Eos # (Auto) 0.2 Baso # (Auto) 0.1 WBC Differential . Differential Comment Auto diff final Sodium 139 Potassium 4.2 Chloride 107 Carbon Dioxide 23.1 Anion Gap 9 BUN 11 Creatinine 1.44 H Estimated GFR 48 L POC Glucose 252 H Random Glucose 153 H Calcium 7.8 L Total Bilirubin 0.2 AST 14 L ALT 11 Alkaline Phosphatase 115 Total Protein 7.0 Albumin 1.9 L Vancomycin Trough 11/20/17 11/20/17 11/20/17 08:05 13:04 16:44 WBC RBC Hgb Hct MCV MCH MCHC RDW Plt Count MPV Neut % (Auto) Lymph % (Auto) Divide % (Auto) Eos % (Auto) Baso % (Auto) Neut # (Auto) Lymph # (Auto) Divide # (Auto) Eos # (Auto) Baso # (Auto) WBC Differential Differential Comment Sodium Potassium Chloride Carbon Dioxide Anion Gap BUN Creatinine Estimated GFR POC Glucose 200 H 200 H 237 H Random Glucose Calcium Total Bilirubin AST ALT Alkaline Phosphatase Total Protein Albumin Vancomycin Trough Microbiology 11/17/17 23:26 Abscess - Thigh Fungal Smear - Final Rare budding yeast 11/17/17 23:26 Abscess - Thigh Fungal Culture - Preliminary Yeast - ID to follow 11/17/17 14:50 Blood - Peripheral Aerobic Blood Culture - Preliminary No growth in 3 days 11/17/17 14:50 Blood - Peripheral Anaerobic Blood Culture - Preliminary No growth in 3 days 11/17/17 14:58 Blood - Peripheral Aerobic Blood Culture - Preliminary No growth in 3 days 11/17/17 14:58 Blood - Peripheral Anaerobic Blood Culture - Preliminary No growth in 3 days 11/17/17 23:25 Abscess - Thigh Acid Fast Bacilli Smear - Final No acid fast bacilli seen Assessment and Plan - Plan 1. Sepsis. 2. Right thigh abscess. 3. Hyponatremia. 4. Metabolic acidosis. 6. AKA. Diabetes mellitus type 2 with hyperglycemia. 4. Lactic acidosis. 1. Severe sepsis present on admission with leukocytosis, right thigh abscess, tachycardia as well as fever. Wound growing MRSA Monitor on telemetry, placed on IV fluids, continue broad-spectrum IV antibiotics with IV vancomycin IV Zosyn. Surgery has been consulted for incision and drainage for ID consultation ff . Follow-up blood cultures obtained in the ED. 2. Surgery consulted. Patient for incision and drainage later today. Keep n.p.o. Pain control of right thigh abscess with oral Percocet and IV morphine for breakthrough pain. 3. Hyponatremia likely pseudohyponatremia from severe hyperglycemia. Correct hyperglycemia with subcutaneous insulin. 4. Metabolic acidosis. Likely secondary to elevated lactic acid level. Monitor BMP. Treated with IV fluids and IV antibiotics. 5. Diabetes mellitus type 2 with hyperglycemia. Patient with blood sugars in the 500s range. Patient is noncompliant with diabetic treatment. Check hemoglobin A1c. Check lipid profile. We will start the patient is starting to the patient is diabetic. Placed on basal bolus therapy with insulin Levemir and insulin NovoLog. Placed on SSI with insulin NovoLog. Monitor Accu-Cheks. Diabetic diet. adaptive physical educator consult. 6. Elevated lactic acid level. Secondary to sepsis and dehydration. Treated with IV fluids. Monitor lactic acid levels. 7. GI prophylaxis Start on a PPI. 8. DVT prophylaxis Patient is at high risk due to obesity, sepsis, active infection, dehydration. We will start the patient on Lovenox subcutaneously to be held prior to incision and drainage. Code Status: Full code Discussed Condition With: Patient, ED physician. Discharge Planning: Continue to monitor the medical floor. Discharge pending clinical improvement. iD also ff.
[2017-11-20] MEDS: Insulin Detemir Inj 1,000 UNIT/10 ML Vial SQ SCH (20:27)
[2017-11-21] MEDS: Piperacil/Tazo 3.375 GM Premix 50 ML IV.SIG SCH ×4 (01:47→18:32)
[2017-11-21] MEDS: Insulin NovoLOG Aspart Correctional Sugar Inj SQ SCH ×7 (01:54→18:37)
[2017-11-21] MEDS: HYDROmorphone PCA Inj 6 MG/30 ML PCA.VIAL PCA PRN ×2 (01:55→11:20)
[2017-11-21] MEDS: Fluconazole 100 MG Tablet PO SCH (08:37)
[2017-11-21] MEDS: Senna/Docusate Sodium 8.6/50 MG Tablet PO SCH ×2 (08:37→20:13)
[2017-11-21] MEDS: Sod Chloride 0.9% Inj 1,000 ML IV.SIG SCH ×6 (08:42→23:05)
--- NOTE | 2017-11-21 10:55 | P.PNGS ---
Subjective Patient reports: feels better (still with some right leg pain but better) Physical Exam Vital signs: Vital Signs 11/20/17 12:00 11/20/17 12:07 11/20/17 12:15 Temperature 98.6 F 98.6 F Pulse Rate 99 H 95 H 94 H Respiratory Rate 18 20 15 Blood Pressure 155/73 H 121/57 L 129/63 Pulse Oximetry 93 L 99 100 11/20/17 12:30 11/20/17 12:45 11/20/17 13:00 Temperature 98.7 F Pulse Rate 96 H 98 H 95 H Respiratory Rate 13 16 14 Blood Pressure 148/68 H 156/70 H 149/76 H Pulse Oximetry 100 100 100 11/20/17 14:01 11/20/17 18:10 11/20/17 18:45 Temperature Pulse Rate Respiratory Rate 17 18 17 Blood Pressure Pulse Oximetry 11/20/17 20:00 11/21/17 00:00 11/21/17 08:00 Temperature 97.2 F L 98 F 98.3 F Pulse Rate 99 H 90 91 H Respiratory Rate 17 17 18 Blood Pressure 103/53 L 102/55 L 99/55 L Pulse Oximetry 94 L 94 L 95 Intake & Output 11/20/17 11/21/17 11/21/17 18:59 06:59 18:59 Intake Total 2880 / 2880 340 / 340 1050 / 1050 Output Total 665 / 665 100 / 100 Balance 2215 / 2215 240 / 240 1050 / 1050 Intake: IV 1400 / 1400 100 / 100 1050 / 1050 LR 1000 mL Inj 1,000 ML @ 30 300 / 300 mls/hr IV.SIG .Q24H JEANNA Rx#: [id number] Zosyn 3.375 GM Premix 50 ML @ 100 / 100 100 / 100 50 / 50 100 mls/hr IV.SIG Q6H JEANNA Rx#: [id number] NS Inj 1,000 ML @ 125 mls/hr IV 1000 / 1000 1000 / 1000 .SIG .Q8H JEANNA Rx#:[id number] Vancomycin Inj 1,750 MG In NS 0 / 0 Inj 500 ML @ 250 mls/hr IV.SIG Q18H JEANNA Rx#:[id number] Oral 480 / 480 240 / 240 Anesthesia Amount 1000 / 1000 Output: Urine 600 / 600 Estimated Blood Loss 20 / 20 Wound Drainage 45 / 45 100 / 100 Right Thigh 45 / 45 100 / 100 Other: # Voids 2 - Routine Exam Patient deferred: external exam (suprapubic area with dressing scant drainage) - Routine Extremities Exam Present: full ROM (vac in place good seal) Assessment and Plan - Plan s/p i and D abscess RLE, Suprapubic PLAN VAC to sxn will likely remove vac pod 3 and transition to wet to dry dressing change suprapubic dressing change daily abx reg diet
[2017-11-21] MEDS: Vancomycin Inj 1,750 MG in Sodium Chlor 0.9% Inj 500 ML IV.SIG SCH (11:55)
--- NOTE | 2017-11-21 13:54 | P.PNID ---
Subjective Remarks: is a 42-year-old -[place] female with past medical history significant for diabetes mellitus. Patient initially presented to [facility] where she was prescribed Bactrim oral and after 3 days been she did not improve she went to a local urgent care. At the urgent care she was prescribed clindamycin and they may have been local incision made to drain this. Patient now presents to the emergency department at [facility] for evaluation of a boil on the right inner thigh that is approximately 3 weeks old at this point. Patient reports being compliant with Bactrim as well as clindamycin and is almost at the end of the therapy and does not seem to be improving. Patient describes moderately severe pain that is nonradiating present mostly in her right inner thigh area. She describes this as aching and sharp and it is worse with pressure and on sitting down. Has been taking ibuprofen for pain as well as fever. Reports decreased appetite. She reports that her blood sugars have been running high and she feels feverish with chills. She had a temperature of 101 Fahrenheit prior to arrival. Patient met sepsis criteria and workup was initiated. Patient underwent imaging as well as call patient underwent irrigation and debridement of these abscesses by Dr. Russo. It appears that these are fairly large abscesses predominantly in the pubis as well as on the right inner thigh area. Infectious diseases consulted for evaluation and management of groin and thigh abscesses, as well as sepsis. Patient reports objective fevers and chills but denies any night sweats. Patient reports compliance with medications. Overnight events reviewed s/p debridement in OR. No fever No rash no diarrhea Antibiotics: Vanco IV Diflucan Lines: Lines ok Past Medical History: reviewed Allergies/Adverse Reactions: Allergies levofloxacin Allergy (Severe, Verified 11/17/17 15:40) Rash Objective Vital Signs 11/20/17 14:01 11/20/17 18:10 11/20/17 18:45 Temperature Pulse Rate Respiratory Rate 17 18 17 Blood Pressure Pulse Oximetry 11/20/17 20:00 11/21/17 00:00 11/21/17 08:00 Temperature 97.2 F L 98 F 98.3 F Pulse Rate 99 H 90 91 H Respiratory Rate 17 17 18 Blood Pressure 103/53 L 102/55 L 99/55 L Pulse Oximetry 94 L 94 L 95 11/21/17 11:34 11/21/17 12:00 Temperature 98.0 F Pulse Rate 82 Respiratory Rate 17 18 Blood Pressure 94/51 L Pulse Oximetry 95 Intake & Output 11/20/17 11/21/17 11/21/17 18:59 06:59 18:59 Intake Total 2880 / 2880 340 / 340 1050 / 1050 Output Total 665 / 665 100 / 100 Balance 2215 / 2215 240 / 240 1050 / 1050 Intake: IV 1400 / 1400 100 / 100 1050 / 1050 LR 1000 mL Inj 1,000 ML @ 30 300 / 300 mls/hr IV.SIG .Q24H JEANNA Rx#: [id number] Zosyn 3.375 GM Premix 50 ML @ 100 / 100 100 / 100 50 / 50 100 mls/hr IV.SIG Q6H JEANNA Rx#: [id number] NS Inj 1,000 ML @ 125 mls/hr IV 1000 / 1000 1000 / 1000 .SIG .Q8H JEANNA Rx#:[id number] Vancomycin Inj 1,750 MG In NS 0 / 0 Inj 500 ML @ 250 mls/hr IV.SIG Q18H JEANNA Rx#:[id number] Oral 480 / 480 240 / 240 Anesthesia Amount 1000 / 1000 Output: Urine 600 / 600 Estimated Blood Loss 20 / 20 Wound Drainage 45 / 45 100 / 100 Right Thigh 45 / 45 100 / 100 Other: # Voids 2 11/17/17 14:50 Blood - Peripheral Aerobic Blood Culture - Preliminary No growth in 4 days 11/17/17 14:50 Blood - Peripheral Anaerobic Blood Culture - Preliminary No growth in 4 days 11/17/17 14:58 Blood - Peripheral Aerobic Blood Culture - Preliminary No growth in 4 days 11/17/17 14:58 Blood - Peripheral Anaerobic Blood Culture - Preliminary No growth in 4 days 11/17/17 23:26 Abscess - Thigh Fungal Smear - Final Rare budding yeast 11/17/17 23:26 Abscess - Thigh Fungal Culture - Preliminary Shauna albicans 11/17/17 23:25 Abscess - Thigh Acid Fast Bacilli Smear - Final No acid fast bacilli seen 11/17/17 23:25 Abscess - Thigh Mycobacterial Culture - Pending 11/17/17 21:14 Abscess - Thigh Gram Stain - Final 11/17/17 21:14 Abscess - Thigh Wound Culture - Final Shauna albicans 11/17/17 14:50 Abscess - Abdominal Gram Stain - Final 11/17/17 14:50 Abscess - Abdominal Wound Culture - Final S. aureus MRSA Lab - Hematology Results 11/20/17 02:37 WBC 10.2 RBC 3.03 L Hgb 7.8 L Hct 24.7 L MCV 81.4 MCH 25.8 L MCHC 31.7 L RDW 14.7 Plt Count 553 H MPV 8.3 Neut % (Auto) 62.7 Lymph % (Auto) 22.8 [place] % (Auto) 11.6 H Eos % (Auto) 2.1 Baso % (Auto) 0.8 Neut # (Auto) 6.4 Lymph # (Auto) 2.3 [place] # (Auto) 1.2 H Eos # (Auto) 0.2 Baso # (Auto) 0.1 WBC Differential . Differential Comment Auto diff final Lab - Chemistry Results 11/19/17 11/19/17 11/20/17 14:11 20:28 01:14 Sodium Potassium Chloride Carbon Dioxide Anion Gap BUN Creatinine Estimated GFR POC Glucose 121 H 158 H 157 H Random Glucose Calcium Total Bilirubin AST ALT Alkaline Phosphatase Total Protein Albumin 11/20/17 11/20/17 11/20/17 02:37 06:36 08:05 Sodium 139 Potassium 4.2 Chloride 107 Carbon Dioxide 23.1 Anion Gap 9 BUN 11 Creatinine 1.44 H Estimated GFR 48 L POC Glucose 252 H 200 H Random Glucose 153 H Calcium 7.8 L Total Bilirubin 0.2 AST 14 L ALT 11 Alkaline Phosphatase 115 Total Protein 7.0 Albumin 1.9 L 11/20/17 11/20/17 11/20/17 13:04 16:44 20:24 Sodium Potassium Chloride Carbon Dioxide Anion Gap BUN Creatinine Estimated GFR POC Glucose 200 H 237 H 248 H Random Glucose Calcium Total Bilirubin AST ALT Alkaline Phosphatase Total Protein Albumin 11/21/17 11/21/17 11/21/17 01:50 07:59 11:19 Sodium Potassium Chloride Carbon Dioxide Anion Gap BUN Creatinine Estimated GFR POC Glucose 237 H 219 H 161 H Random Glucose Calcium Total Bilirubin AST ALT Alkaline Phosphatase Total Protein Albumin Imaging: ITS Impressions Chest X-Ray 11/17/17 14:09 CONCLUSION: No acute intrathoracic disease. Physical Exam: GENERAL: Well-nourished well-developed, not in acute distress SKIN: Cool and dry, no generalized rash HEAD: Atraumatic. Normocephalic. No temporal or scalp tenderness. EYES: Pupils equal round and reactive. Scleral icterus. No injection or drainage. No petechia ENT: Nothing abnormal detected NECK: Trachea midline. Supple, nontender, no meningeal signs. CARDIOVASCULAR: HS audible. RESPIRATORY: Clear to auscultation bilaterally. GASTROINTESTINAL: Abdomen soft nontender. MUSCULOSKELETAL: Extremities without clubbing, cyanosis. NEUROLOGICAL: Alert oriented 3. Nonfocal. Psych cooperative IV line sites ok. Mons pubis with induration and tenderness packing noted. Right thigh and buttock area with induration and tenderness noted. Assessment and Plan - Plan Sepsis present on admission Mons pubis abscess status post I&D Right thigh/buttock abscess status post I&D and wound VAC placement Diabetes type 2 uncontrolled prior history abdominal wall abscess that required incision and drainage as well as antibiotics Recommendations Continue vancomycin target trough 10-15 Continue Diflucan. Follow cultures Follow clinically will dw Surgery about further surgery plans and depth of infection. Possible discharge on oral zyvox depending on discussion with surgeon. Discussed with patient as well as daughter in the room Discussed with STACY
[2017-11-21] MEDS ORDERED: HYDROmorphone PF Inj 2 MG/ML Vial IV.PUSH PRN (15:11)
--- NOTE | 2017-11-21 17:32 | P.PN ---
Physical Exam Vital signs: Vital Signs 11/20/17 18:10 11/20/17 18:45 11/20/17 20:00 Temperature 97.2 F L Pulse Rate 99 H Respiratory Rate 18 17 17 Blood Pressure 103/53 L Pulse Oximetry 94 L 11/21/17 00:00 11/21/17 08:00 11/21/17 11:34 Temperature 98 F 98.3 F Pulse Rate 90 91 H Respiratory Rate 17 18 17 Blood Pressure 102/55 L 99/55 L Pulse Oximetry 94 L 95 11/21/17 12:00 11/21/17 15:01 11/21/17 16:00 Temperature 98.0 F 97.5 F L Pulse Rate 82 89 Respiratory Rate 18 18 18 Blood Pressure 94/51 L 96/51 L Pulse Oximetry 95 96 Intake & Output 11/20/17 11/21/17 11/21/17 18:59 06:59 18:59 Intake Total 2880 / 2880 340 / 340 1050 / 1050 Output Total 665 / 665 100 / 100 Balance 2215 / 2215 240 / 240 1050 / 1050 Intake: IV 1400 / 1400 100 / 100 1050 / 1050 LR 1000 mL Inj 1,000 ML @ 30 300 / 300 mls/hr IV.SIG .Q24H JEANNA Rx#: [id number] Zosyn 3.375 GM Premix 50 ML @ 100 / 100 100 / 100 50 / 50 100 mls/hr IV.SIG Q6H JEANNA Rx#: [id number] NS Inj 1,000 ML @ 125 mls/hr IV 1000 / 1000 1000 / 1000 .SIG .Q8H JEANNA Rx#:[id number] Vancomycin Inj 1,750 MG In NS 0 / 0 Inj 500 ML @ 250 mls/hr IV.SIG Q18H JEANNA Rx#:[id number] Oral 480 / 480 240 / 240 Anesthesia Amount 1000 / 1000 Output: Urine 600 / 600 Estimated Blood Loss 20 / 20 Wound Drainage 45 / 45 100 / 100 Right Thigh 45 / 45 100 / 100 Other: # Voids 2 Narrative: Subjective Interval history: Pain in her groin is controlled with meds. On REFUND SPECIALIST pump , wean off, added po pain meds. Discussed with surgical team. S/P I&D NO fever or chills overnight No n/v/d/c. Physical exam: GENERAL: pleasant 42 yo female, in nad. SKIN: Warm and dry. CARDIOVASCULAR: Regular rate and rhythm without murmurs, gallops, or rubs. RESPIRATORY: Breath sounds equal bilaterally. No accessory muscle use. GASTROINTESTINAL: Abdomen soft, non-tender, nondistended. MUSCULOSKELETAL: No cyanosis, or edema. BACK: Nontender without obvious deformity. No CVA tenderness. Assessment and Plan 1. Sepsis. 2. Right thigh abscess. 3. Hyponatremia. 4. Metabolic acidosis. 6. AKA. Diabetes mellitus type 2 with hyperglycemia. 4. Lactic acidosis. Severe sepsis present on admission with leukocytosis, right thigh abscess, tachycardia as well as fever. Wound growing MRSA Monitor on telemetry, placed on IV fluids, continue broad-spectrum IV antibiotics with IV vancomycin IV Zosyn. Surgery has been consulted for incision and drainage for ID consultation ff . Follow-up blood cultures obtained in the ED. Surgery consulted. Patient s/p incision and drainage Pain control of right thigh abscess with Dilaudid REFUND SPECIALIST pump per surgeon, wean off and DC added Po pain meds and IV for breakthrough pain I and D with excisional debridement of necrotic soft tissue with vac change again on 11/20/[address] Russo Hyponatremia likely pseudohyponatremia from severe hyperglycemia. Correct hyperglycemia with subcutaneous insulin. Metabolic acidosis. Likely secondary to elevated lactic acid level. Monitor BMP. Treated with IV fluids and IV antibiotics. Diabetes mellitus type 2 with hyperglycemia. Patient with blood sugars in the 500s range. Patient is noncompliant with diabetic treatment. Check hemoglobin A1c. Check lipid profile. We will start the patient is starting to the patient is diabetic. Placed on basal bolus therapy with insulin Levemir and insulin NovoLog. Placed on SSI with insulin NovoLog. Monitor Accu-Cheks. Diabetic diet. porter used car lot consult. Elevated lactic acid level. Repeat back to normal Secondary to sepsis and dehydration. Treated with IV fluids. Monitor lactic acid levels. GI prophylaxis Start on a PPI. DVT prophylaxis Patient is at high risk due to obesity, sepsis, active infection, dehydration. We will start the patient on Lovenox subcutaneously to be held prior to incision and drainage. Code Status: Full code Discussed Condition With: Patient, ED physician. Discharge Planning: Continue to monitor the medical floor. Discharge pending clinical improvement. ID also ff. S/P I&D 11/20/[address] Russo Results - Labs CBC & Chem 7: 11/20/17 02:37 11/20/17 02:37 Laboratory Results - last 24 hr 11/20/17 11/21/17 11/21/17 20:24 01:50 07:59 POC Glucose 248 H 237 H 219 H 11/21/17 11/21/17 11:19 15:32 POC Glucose 161 H 159 H Microbiology 11/17/17 14:50 Blood - Peripheral Aerobic Blood Culture - Preliminary No growth in 4 days 11/17/17 14:50 Blood - Peripheral Anaerobic Blood Culture - Preliminary No growth in 4 days 11/17/17 14:58 Blood - Peripheral Aerobic Blood Culture - Preliminary No growth in 4 days 11/17/17 14:58 Blood - Peripheral Anaerobic Blood Culture - Preliminary No growth in 4 days 11/17/17 23:26 Abscess - Thigh Fungal Smear - Final Rare budding yeast 11/17/17 23:26 Abscess - Thigh Fungal Culture - Preliminary Shauna albicans Assessment and Plan - Plan 1. Sepsis. 2. Right thigh abscess. 3. Hyponatremia. 4. Metabolic acidosis. 6. AKA. Diabetes mellitus type 2 with hyperglycemia. 4. Lactic acidosis. 1. Severe sepsis present on admission with leukocytosis, right thigh abscess, tachycardia as well as fever. Wound growing MRSA Monitor on telemetry, placed on IV fluids, continue broad-spectrum IV antibiotics with IV vancomycin IV Zosyn. Surgery has been consulted for incision and drainage for ID consultation ff . Follow-up blood cultures obtained in the ED. 2. Surgery consulted. Patient for incision and drainage later today. Keep n.p.o. Pain control of right thigh abscess with oral Percocet and IV morphine for breakthrough pain. 3. Hyponatremia likely pseudohyponatremia from severe hyperglycemia. Correct hyperglycemia with subcutaneous insulin. 4. Metabolic acidosis. Likely secondary to elevated lactic acid level. Monitor BMP. Treated with IV fluids and IV antibiotics. 5. Diabetes mellitus type 2 with hyperglycemia. Patient with blood sugars in the 500s range. Patient is noncompliant with diabetic treatment. Check hemoglobin A1c. Check lipid profile. We will start the patient is starting to the patient is diabetic. Placed on basal bolus therapy with insulin Levemir and insulin NovoLog. Placed on SSI with insulin NovoLog. Monitor Accu-Cheks. Diabetic diet. porter used car lot consult. 6. Elevated lactic acid level. Secondary to sepsis and dehydration. Treated with IV fluids. Monitor lactic acid levels. 7. GI prophylaxis Start on a PPI. 8. DVT prophylaxis Patient is at high risk due to obesity, sepsis, active infection, dehydration. We will start the patient on Lovenox subcutaneously to be held prior to incision and drainage. Code Status: Full code Discussed Condition With: Patient, ED physician. Discharge Planning: Continue to monitor the medical floor. Discharge pending clinical improvement. iD also ff.
[2017-11-21] MEDS: Insulin Detemir Inj 1,000 UNIT/10 ML Vial SQ SCH (20:14)
[2017-11-22] MEDS: Insulin NovoLOG Aspart Correctional Sugar Inj SQ SCH ×5 (02:12→21:08)
[2017-11-22] MEDS: Piperacil/Tazo 3.375 GM Premix 50 ML IV.SIG SCH ×4 (02:12→21:09)
[2017-11-22] MEDS: Senna/Docusate Sodium 8.6/50 MG Tablet PO SCH ×2 (08:28→21:13)
[2017-11-22] MEDS: Fluconazole 100 MG Tablet PO SCH (08:28)
[2017-11-22] MEDS: Sod Chloride 0.9% Inj 1,000 ML IV.SIG SCH ×2 (16:34→16:41)
--- NOTE | 2017-11-22 16:36 | P.DCO ---
- Home Health Nursing Order: Wound care and dressing changes Instructions: RIGHT thigh/gluteal --- for continued care and patient/family teaching--wet to dry saline moist gauze into wound; change BID; okay to shower between dressing changes Pelvic abscess--- for continued care and patient/family teaching--- wet to dry saline moist gauze into wound; change BID; okay to shower between dressing changes - Certification I have seen patient Court Mc on 11/22/17. My clinical findings support the need for the requested home health care services because: Deconditioned with increased weakness, Limited ability to care for self I certify that my clinical findings support that this patient is homebound because: Post-op weakness
[2017-11-22] MEDS: Vancomycin Inj 1,750 MG in Sodium Chlor 0.9% Inj 500 ML IV.SIG SCH (16:38)
[2017-11-22] MEDS: Morphine Inj 4 MG/ML Vial IV.PUSH PRN ×2 (17:14→23:19)
--- NOTE | 2017-11-22 18:01 | P.PN ---
Physical Exam Vital signs: Vital Signs 11/21/17 20:00 11/22/17 00:00 11/22/17 04:00 Temperature 97.6 F 98 F 98.1 F Pulse Rate 91 H 88 94 H Respiratory Rate 16 16 16 Blood Pressure 105/50 L 131/65 115/65 Pulse Oximetry 95 98 98 11/22/17 08:00 11/22/17 12:00 11/22/17 16:00 Temperature 98.1 F 97.7 F 97.9 F Pulse Rate 90 104 H 95 H Respiratory Rate 18 20 18 Blood Pressure 155/82 H 165/86 H 126/86 Pulse Oximetry 95 92 L 97 Intake & Output 11/21/17 11/22/17 11/22/17 18:59 06:59 18:59 Intake Total 5217.5 / 5217.5 1600 / 1600 2049 Output Total 350 / 350 50 / 50 Balance 4867.5 / 4867.5 1550 / 1550 2049 Weight 113.39 kg Intake: IV 2617.5 / 2617.5 1100 / 1100 2049 Zosyn 3.375 GM Premix 50 ML @ 100 / 100 100 / 100 50 / 50 100 mls/hr IV.SIG Q6H JEANNA Rx#: [id number] NS Inj 1,000 ML @ 125 mls/hr IV 1999 / 1999 1000 / 1000 1999 / 1999 .SIG .Q8H JEANNA Rx#:[id number] Vancomycin Inj 1,750 MG In NS 517.5 / 517.5 Inj 500 ML @ 250 mls/hr IV.SIG Q24H JEANNA Rx#:[id number] Oral 2600 / 2600 Other 500 / 500 Output: Urine 350 / 350 Wound Drainage 50 / 50 Right Thigh 50 / 50 Other: Date of Last Bowel Movement 11/18/17 Narrative: Subjective Interval history: Pain in her groin is controlled with meds. Off TELEPHONE CLERK TELEGRAPH OFFICE pump. Pain is fairly controlled by meds. Discussed with surgical team. S/P I&D No fever or chills overnight. No n/v/d/c. Physical exam: GENERAL: pleasant 42 yo female, in nad. SKIN: Warm and dry. CARDIOVASCULAR: Regular rate and rhythm without murmurs, gallops, or rubs. RESPIRATORY: Breath sounds equal bilaterally. No accessory muscle use. GASTROINTESTINAL: Abdomen soft, non-tender, nondistended. MUSCULOSKELETAL: No cyanosis, or edema. BACK: Nontender without obvious deformity. No CVA tenderness. Assessment and Plan 1. Sepsis. 2. Right thigh abscess. 3. Hyponatremia. 4. Metabolic acidosis. 6. AKA. Diabetes mellitus type 2 with hyperglycemia. 4. Lactic acidosis. Severe sepsis present on admission with leukocytosis, right thigh abscess, tachycardia as well as fever. Wound growing MRSA Monitor on telemetry, placed on IV fluids, continue broad-spectrum IV antibiotics with IV vancomycin IV Zosyn. Surgery has been consulted for incision and drainage for ID consultation ff . Follow-up blood cultures obtained in the ED. Surgery consulted. Patient s/p incision and drainage Pain control of right thigh abscess with Dilaudid TELEPHONE CLERK TELEGRAPH OFFICE pump per surgeon, wean off and DC added Po pain meds and IV for breakthrough pain I and D with excisional debridement of necrotic soft tissue with vac change again on 11/20/[address] Russo Hyponatremia likely pseudohyponatremia from severe hyperglycemia. Correct hyperglycemia with subcutaneous insulin. Metabolic acidosis. Likely secondary to elevated lactic acid level. Monitor BMP. Treated with IV fluids and IV antibiotics. Diabetes mellitus type 2 with hyperglycemia. Patient with blood sugars in the 500s range. Patient is noncompliant with diabetic treatment. Check hemoglobin A1c. Check lipid profile. We will start the patient is starting to the patient is diabetic. Placed on basal bolus therapy with insulin Levemir and insulin NovoLog. Placed on SSI with insulin NovoLog. Monitor Accu-Cheks. Diabetic diet. hospital educator consult. Elevated lactic acid level. Repeat back to normal Secondary to sepsis and dehydration. Treated with IV fluids. Monitor lactic acid levels. GI prophylaxis Start on a PPI. DVT prophylaxis Patient is at high risk due to obesity, sepsis, active infection, dehydration. We will start the patient on Lovenox subcutaneously to be held prior to incision and drainage. Code Status: Full code Discussed Condition With: Patient, ED physician. Discharge Planning: Continue to monitor the medical floor. Discharge pending clinical improvement. ID also ff. Surg ff. S/P I&D 11/20/[address] Russo Results - Labs CBC & Chem 7: 11/20/17 02:37 11/22/17 08:45 Laboratory Results - last 24 hr 11/21/17 11/22/17 11/22/17 20:21 08:22 08:45 Creatinine 1.50 H Estimated GFR 46 L POC Glucose 165 H 209 H 11/22/17 11/22/17 12:27 17:02 Creatinine Estimated GFR POC Glucose 196 H 224 H Microbiology 11/17/17 14:50 Blood - Peripheral Aerobic Blood Culture - Final No growth in 5 days 11/17/17 14:50 Blood - Peripheral Anaerobic Blood Culture - Final No growth in 5 days 11/17/17 14:58 Blood - Peripheral Aerobic Blood Culture - Final No growth in 5 days 11/17/17 14:58 Blood - Peripheral Anaerobic Blood Culture - Final No growth in 5 days Assessment and Plan - Plan 1. Sepsis. 2. Right thigh abscess. 3. Hyponatremia. 4. Metabolic acidosis. 6. AKA. Diabetes mellitus type 2 with hyperglycemia. 4. Lactic acidosis. 1. Severe sepsis present on admission with leukocytosis, right thigh abscess, tachycardia as well as fever. Wound growing MRSA Monitor on telemetry, placed on IV fluids, continue broad-spectrum IV antibiotics with IV vancomycin IV Zosyn. Surgery has been consulted for incision and drainage for ID consultation ff . Follow-up blood cultures obtained in the ED. 2. Surgery consulted. Patient for incision and drainage later today. Keep n.p.o. Pain control of right thigh abscess with oral Percocet and IV morphine for breakthrough pain. 3. Hyponatremia likely pseudohyponatremia from severe hyperglycemia. Correct hyperglycemia with subcutaneous insulin. 4. Metabolic acidosis. Likely secondary to elevated lactic acid level. Monitor BMP. Treated with IV fluids and IV antibiotics. 5. Diabetes mellitus type 2 with hyperglycemia. Patient with blood sugars in the 500s range. Patient is noncompliant with diabetic treatment. Check hemoglobin A1c. Check lipid profile. We will start the patient is starting to the patient is diabetic. Placed on basal bolus therapy with insulin Levemir and insulin NovoLog. Placed on SSI with insulin NovoLog. Monitor Accu-Cheks. Diabetic diet. hospital educator consult. 6. Elevated lactic acid level. Secondary to sepsis and dehydration. Treated with IV fluids. Monitor lactic acid levels. 7. GI prophylaxis Start on a PPI. 8. DVT prophylaxis Patient is at high risk due to obesity, sepsis, active infection, dehydration. We will start the patient on Lovenox subcutaneously to be held prior to incision and drainage. Code Status: Full code Discussed Condition With: Patient, ED physician. Discharge Planning: Continue to monitor the medical floor. Discharge pending clinical improvement. iD also ff.
[2017-11-22] MEDS: Insulin Detemir Inj 1,000 UNIT/10 ML Vial SQ SCH (21:09)
--- NOTE | 2017-11-22 21:31 | P.PNGS ---
Subjective Patient reports: no new complaints, feels better (still with leg pain) Physical Exam Vital signs: Vital Signs 11/22/17 00:00 11/22/17 04:00 11/22/17 08:00 Temperature 98 F 98.1 F 98.1 F Pulse Rate 88 94 H 90 Respiratory Rate 16 16 18 Blood Pressure 131/65 115/65 155/82 H Pulse Oximetry 98 98 95 11/22/17 12:00 11/22/17 16:00 11/22/17 20:00 Temperature 97.7 F 97.9 F 98.2 F Pulse Rate 104 H 95 H 94 H Respiratory Rate 20 18 20 Blood Pressure 165/86 H 126/86 111/60 Pulse Oximetry 92 L 97 95 Intake & Output 11/22/17 11/22/17 11/23/17 06:59 18:59 06:59 Intake Total 1600 / 1600 3820 / 3820 Output Total 50 / 50 Balance 1550 / 1550 3820 / 3820 Weight 113.39 kg Intake: IV 1100 / 1100 2100 / 2100 Zosyn 3.375 GM Premix 50 ML @ 100 / 100 100 / 100 100 mls/hr IV.SIG Q6H JEANNA Rx#: [id number] NS Inj 1,000 ML @ 125 mls/hr IV 1000 / 1000 2000 / 2000 .SIG .Q8H JEANNA Rx#:[id number] Oral 720 / 720 Other 500 / 500 1000 / 1000 Output: Wound Drainage 50 / 50 Right Thigh 50 / 50 Other: # Voids 5 Date of Last Bowel Movement 11/18/17 # Bowel Movements 0 - Routine Respiratory Exam Present: CTA bilaterally - Routine Cardiovascular Exam Present: RRR, S1, S2 - Routine Extremities Exam Present: full ROM (RLE vac in place good sxn, no leak, suprapubic with dressing) Assessment and Plan - Plan s/p i and D abscess RLE, Suprapubic PLAN VAC to sxn will remove vac tomorrow and transition to wet to dry dressing change suprapubic dressing change daily abx reg diet
[2017-11-23] MEDS: Sod Chloride 0.9% Inj 1,000 ML IV.SIG SCH ×4 (05:18→17:48)
[2017-11-23] MEDS: Piperacil/Tazo 3.375 GM Premix 50 ML IV.SIG SCH ×5 (06:15→18:14)
[2017-11-23] MEDS: Insulin NovoLOG Aspart Correctional Sugar Inj SQ SCH ×9 (08:05→18:15)
[2017-11-23] MEDS: Senna/Docusate Sodium 8.6/50 MG Tablet PO SCH ×2 (08:07→20:30)
[2017-11-23] MEDS: Fluconazole 100 MG Tablet PO SCH (08:07)
[2017-11-23] MEDS ORDERED: Pharmacy Ordered Lab Info OTHER ONE (11:45)
[2017-11-23] MEDS: Vancomycin Inj 1,750 MG in Sodium Chlor 0.9% Inj 500 ML IV.SIG SCH (15:42)
[2017-11-23] MEDS: Morphine Inj 4 MG/ML Vial IV.PUSH PRN ×2 (17:14→21:35)
--- NOTE | 2017-11-23 18:04 | P.PNGS ---
<Nicole Tang - Last Filed: 11/23/17 18:01> Subjective Interval history: Resting in bed Wound Vac removed Physical Exam Vital signs: Vital Signs 11/22/17 20:00 11/23/17 00:00 11/23/17 04:00 Temperature 98.2 F 97.9 F 97.7 F Pulse Rate 94 H 77 95 H Respiratory Rate 20 18 20 Blood Pressure 111/60 153/78 H 168/87 H Pulse Oximetry 95 95 97 11/23/17 08:00 11/23/17 09:40 11/23/17 12:00 Temperature 98.1 F 97.5 F L Pulse Rate 105 H 84 Respiratory Rate 18 20 16 Blood Pressure 182/102 H 127/67 Pulse Oximetry 97 99 11/23/17 14:29 11/23/17 16:00 Temperature 98.0 F Pulse Rate 78 Respiratory Rate 16 16 Blood Pressure 139/70 Pulse Oximetry 99 Intake & Output 11/22/17 11/23/17 11/23/17 18:59 06:59 18:59 Intake Total 4337.5 / 4337.5 1580 / 1580 3460 / 3460 Balance 4337.5 / 4337.5 1580 / 1580 3460 / 3460 Weight 120.3 kg Intake: IV 2617.5 / 2617.5 1100 / 1100 1999 / 1999 Zosyn 3.375 GM Premix 50 ML @ 100 / 100 100 / 100 100 mls/hr IV.SIG Q6H JEANNA Rx#: [id number] NS Inj 1,000 ML @ 125 mls/hr IV 1999 / 1999 1000 / 1000 1999 .SIG .Q8H JEANNA Rx#:[id number] Vancomycin Inj 1,750 MG In NS 517.5 / 517.5 Inj 500 ML @ 250 mls/hr IV.SIG Q24H JEANNA Rx#:[id number] Oral 720 / 720 480 / 480 1460 / 1460 Other 1000 / 1000 Other: # Voids 5 4 3 Date of Last Bowel Movement 11/18/17 # Bowel Movements 0 1 0 Narrative: resting in bed bed Cardio: RRR ResP: CTAB Abd: soft non tender Pelvic wound---packing removed--- no residual drainage RIGHT groin wound--- Wound Vac removed---- tissue is beefy red with some minimal bleeding; no residual drainage noted; cleaned with NS and packed with moist 4x4 Assessment and Plan - Plan 42 year old female s/p I&D of RIGHT groin abscess -Would Vac removed -Continue BID dressing changes -Can shower between dressing changes -Regular diet -Pain control -[facility] face to face completed yesterday <Viral Russo - Last Filed: 11/27/17 10:17> Physical Exam Vital signs: Vital Signs 11/26/17 12:00 11/26/17 16:00 11/26/17 20:00 Temperature 98.5 F 97.9 F 97.8 F Pulse Rate 81 72 82 Respiratory Rate 16 18 18 Blood Pressure 154/75 H 150/78 H 174/85 H Pulse Oximetry 97 98 98 11/27/17 00:00 11/27/17 04:00 Temperature 98.5 F 98.4 F Pulse Rate 80 80 Respiratory Rate 18 18 Blood Pressure 176/85 H 162/86 H Pulse Oximetry 94 L 98 Intake & Output 11/26/17 11/27/17 11/27/17 18:59 06:59 18:59 Intake Total 2200 / 2200 100 / 100 Output Total 900 / 900 Balance 2200 / 2200 -800 / -800 Intake: IV 100 / 100 Zosyn 3.375 GM Premix 50 ML @ 100 / 100 100 mls/hr IV.SIG Q6H JEANNA Rx#: [id number] Oral 2200 / 2200 Output: Urine 900 / 900 Other: # Voids 800 Assessment and Plan - Plan patient seen feels better but still with persistent pain vac removal transition to wet to dry dressing abx - Attending Attestation The exam, history, and the medical decision-making described in the above note were completed with the assistance of the mid-level provider. I reviewed and agree with the findings presented. I attest that I had a [id number] encounter with the patient on the same day, and personally performed and documented my assessment and findings in the medical record.
--- NOTE | 2017-11-23 18:21 | P.PN ---
Physical Exam Vital signs: Vital Signs 11/22/17 20:00 11/23/17 00:00 11/23/17 04:00 Temperature 98.2 F 97.9 F 97.7 F Pulse Rate 94 H 77 95 H Respiratory Rate 20 18 20 Blood Pressure 111/60 153/78 H 168/87 H Pulse Oximetry 95 95 97 11/23/17 08:00 11/23/17 09:40 11/23/17 12:00 Temperature 98.1 F 97.5 F L Pulse Rate 105 H 84 Respiratory Rate 18 20 16 Blood Pressure 182/102 H 127/67 Pulse Oximetry 97 99 11/23/17 14:29 11/23/17 16:00 Temperature 98.0 F Pulse Rate 78 Respiratory Rate 16 16 Blood Pressure 139/70 Pulse Oximetry 99 Intake & Output 11/22/17 11/23/17 11/23/17 18:59 06:59 18:59 Intake Total 4337.5 / 4337.5 1580 / 1580 3510 / 3510 Balance 4337.5 / 4337.5 1580 / 1580 3510 / 3510 Weight 120.3 kg Intake: IV 2617.5 / 2617.5 1100 / 1100 2050 / 2050 Zosyn 3.375 GM Premix 50 ML @ 100 / 100 100 / 100 50 / 50 100 mls/hr IV.SIG Q6H JEANNA Rx#: [id number] NS Inj 1,000 ML @ 125 mls/hr IV 1999 / 1999 1000 / 1000 1999 / 1999 .SIG .Q8H JEANNA Rx#:[id number] Vancomycin Inj 1,750 MG In NS 517.5 / 517.5 Inj 500 ML @ 250 mls/hr IV.SIG Q24H JEANNA Rx#:[id number] Oral 720 / 720 480 / 480 1460 / 1460 Other 1000 / 1000 Other: # Voids 5 4 3 Date of Last Bowel Movement 11/18/17 # Bowel Movements 0 1 0 Narrative: Subjective Interval history: She still with pain in her groin. Pain is fairly controlled by meds. Discussed with surgical team. Plan to remove wound VAC today No fever or chills overnight. No n/v/d/c. Physical exam: GENERAL: pleasant 42 yo female, in nad. SKIN: Warm and dry. CARDIOVASCULAR: Regular rate and rhythm without murmurs, gallops, or rubs. RESPIRATORY: Breath sounds equal bilaterally. No accessory muscle use. GASTROINTESTINAL: Abdomen soft, non-tender, nondistended. MUSCULOSKELETAL: No cyanosis, or edema. BACK: Nontender without obvious deformity. No CVA tenderness. Assessment and Plan 1. Sepsis. 2. Right thigh abscess. 3. Hyponatremia. 4. Metabolic acidosis. 6. AKA. Diabetes mellitus type 2 with hyperglycemia. 4. Lactic acidosis. Severe sepsis present on admission with leukocytosis, right thigh abscess, tachycardia as well as fever. Wound growing MRSA Monitor on telemetry, placed on IV fluids, continue broad-spectrum IV antibiotics with IV vancomycin IV Zosyn. Surgery has been consulted for incision and drainage for ID consultation ff . Follow-up blood cultures obtained in the ED. Surgery consulted. 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 Correct hyperglycemia with subcutaneous insulin. Metabolic acidosis. Likely secondary to elevated lactic acid level. Monitor BMP. Treated with IV fluids and IV antibiotics. Diabetes mellitus type 2 with hyperglycemia. Patient with blood sugars in the 500s range. Patient is noncompliant with diabetic treatment. Check hemoglobin A1c. Check lipid profile. We will start the patient is starting to the patient is diabetic. Placed on basal bolus therapy with insulin Levemir and insulin NovoLog. Placed on SSI with insulin NovoLog. Monitor Accu-Cheks. Diabetic diet. oil well gun perforator operator consult. Elevated lactic acid level. Repeat back to normal Secondary to sepsis and dehydration. Treated with IV fluids. Monitor lactic acid levels. GI prophylaxis Start on a PPI. DVT prophylaxis Patient is at high risk due to obesity, sepsis, active infection, dehydration. We will start the patient on Lovenox subcutaneously to be held prior to incision and drainage. Code Status: Full code Discussed Condition With: Patient, ED physician. Discharge Planning: Continue to monitor the medical floor. Discharge pending clinical improvement. ID also ff. Surg ff. S/P I&D 11/20/[address] Russo Wound VAC removed 11/23/17 Possible discharge tomorrow if cleared by infectious disease specialist. Discussed with Dr Saldivar if no more surgery in tented by the general surgery possible patient may be discharged tomorrow. Please coordinate with infectious disease Dr Saldivar for antibiotic needed at discharge Results - Labs CBC & Chem 7: 11/20/17 02:37 11/22/17 08:45 Laboratory Results - last 24 hr 11/22/17 11/23/17 11/23/17 20:21 07:56 12:23 POC Glucose 219 H 172 H 126 H Vancomycin Trough 11/23/17 11/23/17 14:35 17:46 POC Glucose 144 H Vancomycin Trough 16.6 H Assessment and Plan - Plan 1. Sepsis. 2. Right thigh abscess. 3. Hyponatremia. 4. Metabolic acidosis. 6. AKA. Diabetes mellitus type 2 with hyperglycemia. 4. Lactic acidosis. 1. Severe sepsis present on admission with leukocytosis, right thigh abscess, tachycardia as well as fever. Wound growing MRSA Monitor on telemetry, placed on IV fluids, continue broad-spectrum IV antibiotics with IV vancomycin IV Zosyn. Surgery has been consulted for incision and drainage for ID consultation ff . Follow-up blood cultures obtained in the ED. 2. Surgery consulted. Patient for incision and drainage later today. Keep n.p.o. Pain control of right thigh abscess with oral Percocet and IV morphine for breakthrough pain. 3. Hyponatremia likely pseudohyponatremia from severe hyperglycemia. Correct hyperglycemia with subcutaneous insulin. 4. Metabolic acidosis. Likely secondary to elevated lactic acid level. Monitor BMP. Treated with IV fluids and IV antibiotics. 5. Diabetes mellitus type 2 with hyperglycemia. Patient with blood sugars in the 500s range. Patient is noncompliant with diabetic treatment. Check hemoglobin A1c. Check lipid profile. We will start the patient is starting to the patient is diabetic. Placed on basal bolus therapy with insulin Levemir and insulin NovoLog. Placed on SSI with insulin NovoLog. Monitor Accu-Cheks. Diabetic diet. oil well gun perforator operator consult. 6. Elevated lactic acid level. Secondary to sepsis and dehydration. Treated with IV fluids. Monitor lactic acid levels. 7. GI prophylaxis Start on a PPI. 8. DVT prophylaxis Patient is at high risk due to obesity, sepsis, active infection, dehydration. We will start the patient on Lovenox subcutaneously to be held prior to incision and drainage. Code Status: Full code Discussed Condition With: Patient, ED physician. Discharge Planning: Continue to monitor the medical floor. Discharge pending clinical improvement. iD also ff.
[2017-11-23] MEDS: Insulin Detemir Inj 1,000 UNIT/10 ML Vial SQ SCH (20:29)
[2017-11-24] MEDS: Piperacil/Tazo 3.375 GM Premix 50 ML IV.SIG SCH ×4 (00:05→18:20)
[2017-11-24] MEDS: Sod Chloride 0.9% Inj 1,000 ML IV.SIG SCH ×2 (02:00→17:39)
[2017-11-24] MEDS: Insulin NovoLOG Aspart Correctional Sugar Inj SQ SCH ×6 (06:22→18:21)
[2017-11-24] MEDS: Morphine Inj 4 MG/ML Vial IV.PUSH PRN ×4 (07:32→23:23)
[2017-11-24] MEDS: Fluconazole 100 MG Tablet PO SCH (09:12)
[2017-11-24] MEDS: Senna/Docusate Sodium 8.6/50 MG Tablet PO SCH ×2 (09:12→21:10)
[2017-11-24] MEDS: Vancomycin Inj 1,750 MG in Sodium Chlor 0.9% Inj 500 ML IV.SIG SCH ×2 (10:53→12:27)
--- NOTE | 2017-11-24 11:38 | P.PNGS ---
<Nicole Tang - Last Filed: 11/24/17 11:34> Subjective Interval history: Did much better with dressing today; pain better Physical Exam Vital signs: Vital Signs 11/23/17 12:00 11/23/17 14:29 11/23/17 16:00 Temperature 97.5 F L 98.0 F Pulse Rate 84 78 Respiratory Rate 16 16 16 Blood Pressure 127/67 139/70 Pulse Oximetry 99 99 11/23/17 20:00 11/24/17 00:00 11/24/17 04:00 Temperature 97.8 F 98 F 97.8 F Pulse Rate 83 98 H 68 Respiratory Rate 20 20 18 Blood Pressure 120/64 161/84 H 137/63 Pulse Oximetry 99 98 100 11/24/17 07:31 11/24/17 08:00 11/24/17 09:12 Temperature 98.1 F Pulse Rate 78 Respiratory Rate 20 18 18 Blood Pressure 154/80 H Pulse Oximetry 98 Intake & Output 11/23/17 11/24/17 11/24/17 18:59 06:59 18:59 Intake Total 4077.5 / 4077.5 1530 / 1530 Balance 4077.5 / 4077.5 1530 / 1530 Weight 121.9 kg Intake: IV 2617.5 / 2617.5 1050 / 1050 Zosyn 3.375 GM Premix 50 ML @ 100 / 100 50 / 50 100 mls/hr IV.SIG Q6H JEANNA Rx#: [id number] NS Inj 1,000 ML @ 125 mls/hr IV 2000 / 2000 1000 / 1000 .SIG .Q8H JEANNA Rx#:[id number] Vancomycin Inj 1,750 MG In NS 517.5 / 517.5 Inj 500 ML @ 250 mls/hr IV.SIG Q24H JEANNA Rx#:[id number] Oral 1460 / 1460 480 / 480 Other: # Voids 3 3 # Bowel Movements 0 Narrative: Alert and awake Cardio: RRR Resp: CTAB Abd: soft Pelvis abscess---packing removed-- no residual drainage noted RIGHT groin abscess--- superior abscess with moderate thick drainage which I was able to express out and clear; inferior area clean Packing removed in all areas-- patient to shower and re pack after Assessment and Plan - Plan 42 year old female s/p I&D of RIGHT groin abscess -Continue BID dressing changes -Can shower between dressing changes -Regular diet -Pain control -Okay to transition to PO antibiotics when okay with ID and Primary team -C face to face completed -Okay to DC home when pain controlled during dressing changes and on PO antibiotics -GS will continue to follow peripherally -STACY Vásquez at bedside <Viral Russo - Last Filed: 11/27/17 10:19> Physical Exam Vital signs: Vital Signs 11/26/17 12:00 11/26/17 16:00 11/26/17 20:00 Temperature 98.5 F 97.9 F 97.8 F Pulse Rate 81 72 82 Respiratory Rate 16 18 18 Blood Pressure 154/75 H 150/78 H 174/85 H Pulse Oximetry 97 98 98 11/27/17 00:00 11/27/17 04:00 Temperature 98.5 F 98.4 F Pulse Rate 80 80 Respiratory Rate 18 18 Blood Pressure 176/85 H 162/86 H Pulse Oximetry 94 L 98 Intake & Output 11/26/17 11/27/17 11/27/17 18:59 06:59 18:59 Intake Total 2200 / 2200 100 / 100 Output Total 900 / 900 Balance 2200 / 2200 -800 / -800 Intake: IV 100 / 100 Zosyn 3.375 GM Premix 50 ML @ 100 / 100 100 mls/hr IV.SIG Q6H JEANNA Rx#: [id number] Oral 2200 / 2200 Output: Urine 900 / 900 Other: # Voids 800 Assessment and Plan - Plan patient seen at bedside d/c when tolerating dressing change with po meds only will follow prn f/u with Dr. Russo in 1 week
--- NOTE | 2017-11-24 19:00 | P.PNID ---
Subjective Remarks: is a 42-year-old -[place] female with past medical history significant for diabetes mellitus. Patient initially presented to [facility] where she was prescribed Bactrim oral and after 3 days been she did not improve she went to a local urgent care. At the urgent care she was prescribed clindamycin and they may have been local incision made to drain this. Patient now presents to the emergency department at [facility] for evaluation of a boil on the right inner thigh that is approximately 3 weeks old at this point. Patient reports being compliant with Bactrim as well as clindamycin and is almost at the end of the therapy and does not seem to be improving. Patient describes moderately severe pain that is nonradiating present mostly in her right inner thigh area. She describes this as aching and sharp and it is worse with pressure and on sitting down. Has been taking ibuprofen for pain as well as fever. Reports decreased appetite. She reports that her blood sugars have been running high and she feels feverish with chills. She had a temperature of 101 Fahrenheit prior to arrival. Patient met sepsis criteria and workup was initiated. Patient underwent imaging as well as call patient underwent irrigation and debridement of these abscesses by Dr. Russo. It appears that these are fairly large abscesses predominantly in the pubis as well as on the right inner thigh area. Infectious diseases consulted for evaluation and management of groin and thigh abscesses, as well as sepsis. Patient reports objective fevers and chills but denies any night sweats. Patient reports compliance with medications. Overnight events reviewed s/p debridement in OR. Wound vac removed. No fever No rash no diarrhea Patient informs me her daughter can take her home only on Monday. Antibiotics: Vanco IV Diflucan Lines: Lines ok Past Medical History: reviewed Allergies/Adverse Reactions: Allergies levofloxacin Allergy (Severe, Verified 11/17/17 15:40) Rash Objective Vital Signs 11/23/17 20:00 11/24/17 00:00 11/24/17 04:00 Temperature 97.8 F 98 F 97.8 F Pulse Rate 83 98 H 68 Respiratory Rate 20 20 18 Blood Pressure 120/64 161/84 H 137/63 Pulse Oximetry 99 98 100 11/24/17 07:31 11/24/17 08:00 11/24/17 09:12 Temperature 98.1 F Pulse Rate 78 Respiratory Rate 20 18 18 Blood Pressure 154/80 H Pulse Oximetry 98 11/24/17 12:00 11/24/17 12:26 11/24/17 13:01 Temperature 98.1 F Pulse Rate 72 Respiratory Rate 18 20 18 Blood Pressure 143/82 H Pulse Oximetry 96 11/24/17 16:00 11/24/17 18:19 Temperature 98.5 F Pulse Rate 83 Respiratory Rate 20 7 L Blood Pressure 152/74 H Pulse Oximetry 100 Intake & Output 11/23/17 11/24/17 11/24/17 18:59 06:59 18:59 Intake Total 4077.5 / 4077.5 1580 / 1580 1567.5 / 1567.5 Balance 4077.5 / 4077.5 1580 / 1580 1567.5 / 1567.5 Weight 121.9 kg Intake: IV 2617.5 / 2617.5 1100 / 1100 1567.5 / 1567.5 Zosyn 3.375 GM Premix 50 ML @ 100 / 100 100 / 100 50 / 50 100 mls/hr IV.SIG Q6H JEANNA Rx#: [id number] NS Inj 1,000 ML @ 125 mls/hr IV 2000 / 2000 1000 / 1000 1000 / 1000 .SIG .Q8H JEANNA Rx#:[id number] Vancomycin Inj 1,750 MG In NS 517.5 / 517.5 517.5 / 517.5 Inj 500 ML @ 250 mls/hr IV.SIG Q24H JEANNA Rx#:[id number] Oral 1460 / 1460 480 / 480 Other: # Voids 3 3 # Bowel Movements 0 11/17/17 23:25 Abscess - Thigh Acid Fast Bacilli Smear - Final No acid fast bacilli seen 11/17/17 23:25 Abscess - Thigh Mycobacterial Culture - Preliminary No growth in 1 week 11/17/17 14:50 Blood - Peripheral Aerobic Blood Culture - Final No growth in 5 days 11/17/17 14:50 Blood - Peripheral Anaerobic Blood Culture - Final No growth in 5 days 11/17/17 14:58 Blood - Peripheral Aerobic Blood Culture - Final No growth in 5 days 11/17/17 14:58 Blood - Peripheral Anaerobic Blood Culture - Final No growth in 5 days Lab - Chemistry Results 11/22/17 11/23/17 11/23/17 20:21 07:56 12:23 Creatinine Estimated GFR POC Glucose 219 H 172 H 126 H 11/23/17 11/24/17 11/24/17 17:46 00:55 06:18 Creatinine Estimated GFR POC Glucose 144 H 109 127 H 11/24/17 11/24/17 11/24/17 06:37 10:57 16:46 Creatinine 1.25 H Estimated GFR 56 L POC Glucose 120 H 109 Imaging: ITS Impressions Chest X-Ray 11/17/17 14:09 CONCLUSION: No acute intrathoracic disease. Physical Exam: GENERAL: Well-nourished well-developed, not in acute distress SKIN: Cool and dry, no generalized rash HEAD: Atraumatic. Normocephalic. No temporal or scalp tenderness. EYES: Pupils equal round and reactive. Scleral icterus. No injection or drainage. No petechia ENT: Nothing abnormal detected NECK: Trachea midline. Supple, nontender, no meningeal signs. CARDIOVASCULAR: HS audible. RESPIRATORY: Clear to auscultation bilaterally. GASTROINTESTINAL: Abdomen soft nontender. MUSCULOSKELETAL: Extremities without clubbing, cyanosis. NEUROLOGICAL: Alert oriented 3. Nonfocal. Psych cooperative IV line sites ok. Mons pubis with induration and tenderness packing noted. Right thigh and buttock area with induration and tenderness noted. Assessment and Plan - Plan Sepsis present on admission Mons pubis abscess status post I&D Right thigh/buttock abscess status post I&D and wound VAC placement Diabetes type 2 uncontrolled prior history abdominal wall abscess that required incision and drainage as well as antibiotics Recommendations Continue vancomycin IV target trough 10-15. Continue Diflucan. Follow cultures Follow clinically Discussed with patient. Discussed with RN neha Bowles: Continue Vanco IV in hospital. Ok to switch to oral Zyvox 600 mg po bid for 14 days plus Oral diflucan 100 mg po daily for 14 days. Will sign off please call back if any change in clinical condition or questions.
--- NOTE | 2017-11-24 19:01 | P.PN ---
Subjective Interval history: Follow-up for groin abscess. Patient is currently doing well. No fever or chills. Surgery changed her dressing today. Surgery cleared for discharge. ID also recommended discharging on p.o. Zyvox. However it would be very difficult for patient to do the dressing changes on her own. She would not be able to go to her daughter's place until Monday. Also home health cannot start until Monday. Physical Exam Vital signs: Vital Signs 11/23/17 20:00 11/24/17 00:00 11/24/17 04:00 Temperature 97.8 F 98 F 97.8 F Pulse Rate 83 98 H 68 Respiratory Rate 20 20 18 Blood Pressure 120/64 161/84 H 137/63 Pulse Oximetry 99 98 100 11/24/17 07:31 11/24/17 08:00 11/24/17 09:12 Temperature 98.1 F Pulse Rate 78 Respiratory Rate 20 18 18 Blood Pressure 154/80 H Pulse Oximetry 98 11/24/17 12:00 11/24/17 12:26 11/24/17 13:01 Temperature 98.1 F Pulse Rate 72 Respiratory Rate 18 20 18 Blood Pressure 143/82 H Pulse Oximetry 96 11/24/17 16:00 11/24/17 18:19 Temperature 98.5 F Pulse Rate 83 Respiratory Rate 20 7 L Blood Pressure 152/74 H Pulse Oximetry 100 Intake & Output 11/23/17 11/24/17 11/24/17 18:59 06:59 18:59 Intake Total 4077.5 / 4077.5 1580 / 1580 1567.5 / 1567.5 Balance 4077.5 / 4077.5 1580 / 1580 1567.5 / 1567.5 Weight 121.9 kg Intake: IV 2617.5 / 2617.5 1100 / 1100 1567.5 / 1567.5 Zosyn 3.375 GM Premix 50 ML @ 100 / 100 100 / 100 50 / 50 100 mls/hr IV.SIG Q6H JEANNA Rx#: [id number] NS Inj 1,000 ML @ 125 mls/hr IV 2000 / 2000 1000 / 1000 1000 / 1000 .SIG .Q8H JEANNA Rx#:[id number] Vancomycin Inj 1,750 MG In NS 517.5 / 517.5 517.5 / 517.5 Inj 500 ML @ 250 mls/hr IV.SIG Q24H JEANNA Rx#:[id number] Oral 1460 / 1460 480 / 480 Other: # Voids 3 3 # Bowel Movements 0 Narrative: GENERAL: Alert, oriented 3, NAD. SKIN: Warm and dry. HEAD: Normocephalic. EYES: No scleral icterus. No injection or drainage. NECK: Supple, trachea midline. No JVD or lymphadenopathy. CARDIOVASCULAR: Regular rate and rhythm without murmurs, gallops, or rubs. RESPIRATORY: Breath sounds equal bilaterally. No accessory muscle use. GASTROINTESTINAL: Abdomen soft, non-tender, nondistended. MUSCULOSKELETAL: No cyanosis, or edema. BACK: Nontender without obvious deformity. No CVA tenderness. Results - Labs CBC & Chem 7: 11/20/17 02:37 11/24/17 06:37 Laboratory Results - last 24 hr 11/24/17 11/24/17 11/24/17 00:55 06:18 06:37 Creatinine 1.25 H Estimated GFR 56 L POC Glucose 109 127 H 11/24/17 11/24/17 10:57 16:46 Creatinine Estimated GFR POC Glucose 120 H 109 Microbiology 11/17/17 23:25 Abscess - Thigh Acid Fast Bacilli Smear - Final No acid fast bacilli seen 11/17/17 23:25 Abscess - Thigh Mycobacterial Culture - Preliminary No growth in 1 week Assessment and Plan - Plan Ms. Mc is a pleasant 42-year-old -[place] female with a history of diabetes mellitus who was admitted to the hospital due to right groin infection. She was treated in the outpatient setting twice using Bactrim and clindamycin. However due to persistent symptoms she decided to come to the hospital. General surgery was consulted and patient underwent surgical I&D. Infectious disease was consulted and patient received Zosyn, vancomycin and Diflucan. Sepsis due to right groin abscess Right groin abscess -Status post surgical I&D. -General surgery recommends twice daily dressing changes and follow-up in the outpatient setting. -Discussed with infectious disease. We will continue patient on Diflucan for 2 weeks as well as Zyvox for 2 weeks. -Home health cannot start until 11/27/2017. Will plan on discharging patient on 11/27/2017. Diabetes mellitus -Continue Levemir and sliding scale insulin. Full code. SCDs.
[2017-11-24] MEDS: Insulin Detemir Inj 1,000 UNIT/10 ML Vial SQ SCH (21:14)
[2017-11-25] MEDS: Piperacil/Tazo 3.375 GM Premix 50 ML IV.SIG SCH ×4 (01:19→20:20)
[2017-11-25] MEDS: Sod Chloride 0.9% Inj 1,000 ML IV.SIG SCH ×5 (01:22→13:50)
[2017-11-25] MEDS: Insulin NovoLOG Aspart Correctional Sugar Inj SQ SCH ×5 (01:32→19:38)
[2017-11-25] MEDS: Fluconazole 100 MG Tablet PO SCH (08:43)
[2017-11-25] MEDS: Senna/Docusate Sodium 8.6/50 MG Tablet PO SCH ×2 (08:43→20:23)
[2017-11-25] MEDS: Vancomycin Inj 1,750 MG in Sodium Chlor 0.9% Inj 500 ML IV.SIG SCH (13:48)
--- NOTE | 2017-11-25 14:08 | P.PN ---
Subjective Interval history: Nursing denies any deterioration since last night. Patient herself says she feels that her pain is improved since admission of her right leg. Says she is walking around. She says she knows how to administer insulin at home and how to check her blood sugars. Says she has not had insulin supply due to insurance issues for approximately "8-9 months". Thinks that her legs are somewhat swollen. Physical Exam Vital signs: Vital Signs 11/24/17 16:00 11/24/17 18:19 11/24/17 20:00 Temperature 98.5 F 98.1 F Pulse Rate 83 78 Respiratory Rate 20 7 L 17 Blood Pressure 152/74 H 175/87 H Pulse Oximetry 100 98 11/25/17 00:00 11/25/17 04:00 11/25/17 08:00 Temperature 97.6 F 97.9 F 98.5 F Pulse Rate 74 78 81 Respiratory Rate 18 17 20 Blood Pressure 154/82 H 139/64 168/81 H Pulse Oximetry 99 96 97 Intake & Output 11/24/17 11/25/17 11/25/17 18:59 06:59 18:59 Intake Total 2135.0 / 2135.0 2850 / 2850 50 / 50 Balance 2135.0 / 2135.0 2850 / 2850 50 / 50 Weight 121.9 kg Intake: IV 2135.0 / 2135.0 1050 / 1050 50 / 50 Zosyn 3.375 GM Premix 50 ML @ 100 / 100 50 / 50 50 / 50 100 mls/hr IV.SIG Q6H JEANNA Rx#: [id number] NS Inj 1,000 ML @ 125 mls/hr IV 1000 / 1000 1000 / 1000 0 / 0 .SIG .Q8H JEANNA Rx#:[id number] Vancomycin Inj 1,750 MG In NS 1035.0 / 1035.0 Inj 500 ML @ 250 mls/hr IV.SIG Q24H JEANNA Rx#:[id number] Oral 1800 / 1800 Other: # Voids 9 Date of Last Bowel Movement 11/22/12 Narrative: Right buttock wound with packing, no obvious drainage noted Clear lungs bilaterally, unlabored breathing No zeb LE Edema noted in context of oerall obese habitus Results - Labs CBC & Chem 7: 11/20/17 02:37 11/24/17 06:37 Laboratory Results - last 24 hr 11/24/17 11/24/17 11/25/17 16:46 21:12 01:21 POC Glucose 109 142 H 154 H 11/25/17 07:02 POC Glucose 139 H Microbiology 11/17/17 23:25 Abscess - Thigh Acid Fast Bacilli Smear - Final No acid fast bacilli seen 11/17/17 23:25 Abscess - Thigh Mycobacterial Culture - Preliminary No growth in 1 week Assessment and Plan - Plan Ms. Mc is a pleasant 42-year-old -[place] female with a history of diabetes mellitus who was admitted to the hospital due to right groin infection. She was treated in the outpatient setting twice using Bactrim and clindamycin. However due to persistent symptoms she decided to come to the hospital. General surgery was consulted and patient underwent surgical I&D. Infectious disease was consulted and patient received Zosyn, vancomycin and Diflucan. Sepsis due to right groin abscess -sepsis element resolved Right groin abscess -Status post surgical I&D. -General surgery recommends twice daily dressing changes and follow-up in the outpatient setting., Clear for discharge from surgical standpoint -Continue patient on vanc and antifungal while in-house, transition to zyvox and Diflucan for 2 weeks upon discharge. -Home health cannot start until 11/27/2017. Will plan on discharging patient on 11/27/2017. Acute kidney injury -Likely due to sepsis upon dehydration, much improved, repeat BMP in a.m. stopping IVFs. Diabetes mellitus -Continue Levemir and sliding scale insulin. Patient will need to be discharged on insulin she is taking at least 9 units of mealtime insulin N 17 units of Levemir every 24 hours to keep her sugars under 200. Extensively explained to the patient the importance of being compliant and having her sugars well controlled to facilitate good wound healing and to minimize such wound infections from occurring in the future.
[2017-11-25] MEDS: Insulin Detemir Inj 1,000 UNIT/10 ML Vial SQ SCH (20:21)
[2017-11-26] MEDS: Temazepam 15 MG Capsule PO PRN (01:43)
[2017-11-26] MEDS: Insulin NovoLOG Aspart Correctional Sugar Inj SQ SCH ×7 (01:54→20:11)
[2017-11-26] MEDS: Piperacil/Tazo 3.375 GM Premix 50 ML IV.SIG SCH ×4 (01:56→18:18)
[2017-11-26] MEDS: Senna/Docusate Sodium 8.6/50 MG Tablet PO SCH ×2 (08:33→20:08)
[2017-11-26] MEDS: Fluconazole 100 MG Tablet PO SCH (08:33)
[2017-11-26] MEDS ORDERED: Pharmacy Ordered Lab Info OTHER ONE (11:45)
[2017-11-26] MEDS ORDERED: Sod Chloride 0.9% Inj 1,000 ML IV.SIG ONE (13:15)
--- NOTE | 2017-11-26 15:05 | P.PN ---
Subjective Interval history: Nursing denies any deterioration since last night. Patient thinks her right leg is still swollen overall. But left leg according to her seems normal Physical Exam Vital signs: Vital Signs 11/25/17 16:00 11/25/17 19:15 11/25/17 20:00 Temperature 98.0 F 98.6 F Pulse Rate 82 79 87 Respiratory Rate 20 18 Blood Pressure 155/82 H 160/75 H Pulse Oximetry 98 98 11/26/17 00:00 11/26/17 04:00 11/26/17 08:00 Temperature 98.3 F 98.1 F 98.4 F Pulse Rate 87 79 79 Respiratory Rate 20 19 16 Blood Pressure 166/93 H 142/79 H 139/72 Pulse Oximetry 97 99 97 11/26/17 12:00 Temperature 98.5 F Pulse Rate 81 Respiratory Rate 16 Blood Pressure 154/75 H Pulse Oximetry 97 Intake & Output 11/25/17 11/26/17 11/26/17 18:59 06:59 18:59 Intake Total 2250 / 2250 200 / 200 Output Total 2500 / 2500 1300 / 1300 Balance -250 / -250 -1100 / -1100 Intake: IV 50 / 50 200 / 200 Zosyn 3.375 GM Premix 50 ML @ 50 / 50 200 / 200 100 mls/hr IV.SIG Q6H JEANNA Rx#: [id number] NS Inj 1,000 ML @ 125 mls/hr IV 0 / 0 .SIG .Q8H JEANNA Rx#:[id number] Oral 2200 / 2200 Output: Urine 2500 / 2500 1300 / 1300 Other: # Bowel Movements 0 1 Narrative: No zeb edema noted over the right foot whereas right thigh and right calf seem larger in comparison to the left Unlabored breathing, no acute distress Results - Labs CBC & Chem 7: 11/20/17 02:37 11/26/17 09:45 Laboratory Results - last 24 hr 11/25/17 11/26/17 11/26/17 15:52 01:45 06:28 Creatinine Estimated GFR POC Glucose 147 H 230 H 172 H Vancomycin Trough 11/26/17 11/26/17 09:45 12:00 Creatinine 1.35 H Estimated GFR 52 L POC Glucose Vancomycin Trough 21.2 H Assessment and Plan - Plan Ms. Mc is a pleasant 42-year-old -Bhut[place] female with a history of diabetes mellitus who was admitted to the hospital due to right groin infection. She was treated in the outpatient setting twice using Bactrim and clindamycin. However due to persistent symptoms she decided to come to the hospital. General surgery was consulted and patient underwent surgical I&D. Infectious disease was consulted and patient received Zosyn, vancomycin and Diflucan. Sepsis due to right groin abscess -sepsis element resolved Right groin abscess -Status post surgical I&D. -General surgery recommends twice daily dressing changes and follow-up in the outpatient setting., Clear for discharge from surgical standpoint -Transitioning to zyvox now and Diflucan for 2 weeks upon discharge. -Home health cannot start until 11/27/2017. Will plan on discharging patient on 11/27/2017. Acute kidney injury -Mild worsening, will order fluid bolus and stop vancomycin and transition the patient to oral Zyvox now. AM BMP. RLE edema - possibly 2/2 wound/inflammation from right groin abscess given asymmetry. Elevate leg and ordering echo, unlikely HF. Diabetes mellitus -Continue Levemir and sliding scale insulin while inpatient. Discussed with patient's pharmacy, patient's Lantus and Humalog regimens have been approved and called in already, patient aware.
[2017-11-26] MEDS: Insulin Detemir Inj 1,000 UNIT/10 ML Vial SQ SCH (20:06)
[2017-11-26] MEDS: Linezolid 600 MG Tablet PO SCH (20:09)
[2017-11-27] MEDS: Piperacil/Tazo 3.375 GM Premix 50 ML IV.SIG SCH ×2 (00:08→06:09)
[2017-11-27] MEDS: Temazepam 15 MG Capsule PO PRN (00:09)
[2017-11-27] MEDS: Insulin NovoLOG Aspart Correctional Sugar Inj SQ SCH ×5 (00:19→12:57)
[2017-11-27] MEDS: Linezolid 600 MG Tablet PO SCH (09:13)
[2017-11-27] MEDS: Senna/Docusate Sodium 8.6/50 MG Tablet PO SCH (09:13)
[2017-11-27] MEDS: Fluconazole 100 MG Tablet PO SCH (09:13)
[2017-11-27 10:04] LABS: Calcium 8.4 mg/dL (8.5-10.1); Carbon Dioxide 23.7 meq/L (21.0-32.0); Potassium 3.4 meq/L (3.5-5.1)
--- NOTE | 2017-11-27 10:33 | MP ---
cc: Viral Russo MD DATE OF OPERATION: 11/20/2017 PREOPERATIVE DIAGNOSIS: Suprapubic abscess, right lower extremity abscess. POSTOPERATIVE DIAGNOSIS: Suprapubic abscess, right lower extremity abscess. PROCEDURE PERFORMED: 1. Incision and excisional debridement right lower extremity thigh and buttock abscess, previous cavity 6 x 5 x 4, second cavity 4 x 4 x 3, excisional debridement of subcutaneous tissue and necrotic fat. 2. Change of negative pressure VAC. SURGEON: Viral Russo MD WAFER FABRICATOR: See OR sheet. ANESTHESIA: GETA. IV FLUIDS: See anesthesia sheet. ESTIMATED BLOOD LOSS: 20 mL. DRAINS: Hemovac. COMPLICATIONS: None. WOUND CLASSIFICATION: Dirty/contaminated. SPECIMENS: None. FINDINGS: Persistent necrotic subcutaneous fat tissue, large abscess. INDICATIONS: The patient is a poorly controlled diabetic who presented with right lower extremity pain and suprapubic pain, found to have a large abscess status post debridement with VAC placement. The patient is for VAC change and redebridement. DETAILS OF PROCEDURE: The patient was taken to the operating suite, placed in supine position. She was prepped and draped in the usual sterile fashion after induction of general endotracheal anesthesia. The correct patient, procedure, and surgical site were all correct. Attention directed to the posterior right lower extremity, thigh and buttocks. The plastic dressing was removed. The sponge was removed x 2. The 2 previously debrided area was noted to have persistence and further necrotic fat. The abscess cavity actually extended farther inferior lateral. A small circular rim of tissue was removed in this inferior lateral aspect. Further excisional debridement to remove more necrotic tissue was done. Necrotic excisional debridement was done to the subcutaneous fat and some of the skin. Also, the suprapubic area was identified. The dressing packing was removed and irrgation done, This was relatively clean without any retention or necrotic debris. Irrigation to both cavities done thoroughly. Hemostasis was obtained with electro Bovie cautery. VAC sponge was cut somewhat smaller and placed in the tissue defects to the thigh and posterior buttocks. A plastic dressing was placed. A bridge was done between the 2 cavities and incorporated in the third one. Track pad placed. Back hooked up to machines without evidence of a leak. The size of the new cavity noted to be 6 x 5 x 4 cm deep. The suprapubic root cavity remained a 4 x 4 x 3 deep. Packing placed to the suprapubic cavity and including Betadine-soaked Kaela. All lap and instrument counts were correct. The patient tolerated the procedure well. No intraoperative complications. MD PAPI Edwards/SHAZIA , 10:11 AM , 10:32 AM NICOLAS
--- NOTE | 2017-11-27 13:22 | US ---
EXAM DATE: 11/27/2017 1:19 PM EDT AGE/SEX: 42 years / Female INDICATIONS: Right leg swelling. CLINICAL DATA: This is the patient's initial encounter. Patient reports that signs and symptoms have been present for 1 day and indicates a pain score of 4/10. MEDICAL/SURGICAL HISTORY: . Diabetic. . I&D right thigh/buttock abscess. COMPARISON: No prior exams available for comparison. TECHNIQUE: Venous ultrasound of both lower extremities was performed from the inguinal ligament to t he proximal calf. Real-time, color Doppler and spectral tracing, compression and augmentation techni ques were used. FINDINGS: Normal compression of the deep venous system from the inguinal region to the proximal calf . No echogenic clot is seen. Normal response of the venous system to augmentation and respiration. CONCLUSION: The study is negative for lower extremity deep venous thrombosis. Electronically signed by: Rico Amezcua MD 11/27/2017 1:20 PM EDT
--- NOTE | 2017-11-27 15:07 | P.DS ---
Date of admission: 11/17/17 16:12 Primary care physician: UNKNOWN Brief History from admission: This is a 42-year-old -[place] Citizen female with history of diabetes mellitus noncompliant with treatment who presents to [facility] complaining of right thigh pain and swelling along with drainage was started approximately 2 weeks ago. The patient states that she had a boil on the right thigh for which she went to for the hospital at [place] and was initially treated with Bactrim. After taking Bactrim for 4 days and not seeing any improvement the patient went to an urgent care at the same [facility] and was prescribed clindamycin. The patient states she finished the clindamycin course yesterday without seeing any improvement. She also states that she has seen for discharge coming from the swelling part. Swelling is localized in the right inner thigh associated with severe tenderness to palpation and pain, nonradiating, 10/10 on its max intensity. Patient states moving and walking makes the pain worst and laying still and receiving pain medications makes it better. The patient also complains of fevers and chills as well as nausea but denies abdominal pain or diarrhea. Patient also denies dysuria, headache, dizziness, chest pain or shortness of breath as well as cough. DS: Medications - Discharge Medications Prescriptions: aspirin [Adult Low Dose Aspirin] 81 mg PO DAILY #30 tab atorvastatin 10 mg PO HS #30 tab carvedilol [Coreg] 3.125 mg PO BID #60 tab fluconazole 100 mg PO DAILY #14 tab furosemide 20 mg PO DAILY PRN #30 tab PRN Reason: swelling hydrocodone-acetaminophen 1 tab PO Q8H PRN #21 tab PRN Reason: Acute Pain insulin glargine 17 unit SUB-Q HS #1 vial insulin lispro [Humalog U-100 Insulin] 9 unit SUB-Q TIDAC #1 vial insulin syringe-needle U-100 [Insulin Syringe] #1 box linezolid [Zyvox] 600 mg PO Q12HR #28 tab lisinopril 5 mg PO DAILY #30 tab DS: Summary Hospital Course: Patient was admitted with sepsis. Started on antibiotics. General surgery performed surgical incision and debridement of right buttock/groin abscess, with second operation for wound vac change. Abscess grew out Shauna and MRSA. Blood cultures are negative. Special wound care instructions ordered per general surgery. Patient tolerating p.o. intake well with no fevers. Patient has met maximal benefit from hospitalization is clinically stable for discharge home with home health care. Patient was counseled extensively on tight blood sugar control for good wound healing. Has some mild residual right extremity edema which is likely secondary to postinflammatory state surgery on that extremity. Ultrasound was negative. Echocardiogram showed a mildly depressed ejection fraction with a dilated left ventricle w/ global hypokinesis. Findings d/w cardiology, per their recommendations patient was started on heart failure medications and was instructed to follow-up cardiology closely outpatient and her PCP. Patient is having significant pain caused by surgical abscess which will last more than 3 days. I believe that it is medically necessary to treat patients pain because it is affecting patients ability to function. - Time Spent with Patient Total time spent providing and/or coordinating discharge services: Less than 30 minutes Exam Vital signs: Vital Signs 11/26/17 16:00 11/26/17 20:00 11/27/17 00:00 Temperature 97.9 F 97.8 F 98.5 F Pulse Rate 72 82 80 Respiratory Rate 18 18 18 Blood Pressure 150/78 H 174/85 H 176/85 H Pulse Oximetry 98 98 94 L 11/27/17 04:00 11/27/17 08:00 11/27/17 12:00 Temperature 98.4 F 98.5 F 97.4 F L Pulse Rate 80 80 77 Respiratory Rate 18 17 18 Blood Pressure 162/86 H 159/89 H 141/83 H Pulse Oximetry 98 95 96 Intake & Output 11/26/17 11/27/17 11/27/17 18:59 06:59 18:59 Intake Total 2200 / 2200 100 / 100 Output Total 900 / 900 Balance 2200 / 2200 -800 / -800 Intake: IV 100 / 100 Zosyn 3.375 GM Premix 50 ML @ 100 / 100 100 mls/hr IV.SIG Q6H JEANNA Rx#: [id number] Oral 2200 / 2200 Output: Urine 900 / 900 Other: # Voids 800 Date of Last Bowel Movement 11/26/17 Narrative: Minimal right lower extremity edema mainly in the thigh, nontender to palpation , normal color Results Procedures completed during hospitalization: I and D of surgical abscess with wound vac placement Labs on day of discharge: Labs from last 24 hours 11/27/17 11/27/17 11/27/17 12:01 08:56 06:07 Sodium 142 Potassium 3.4 L Chloride 108 H Carbon Dioxide 23.7 Anion Gap 10 BUN 7 Creatinine 1.35 H Estimated GFR 52 L POC Glucose 141 H 141 H Random Glucose 132 H Calcium 8.4 L 11/27/17 11/26/17 00:04 18:12 Sodium Potassium Chloride Carbon Dioxide Anion Gap BUN Creatinine Estimated GFR POC Glucose 181 H 151 H Random Glucose Calcium Preliminary micro results at discharge 11/17/17 23:25 Mycobacterial Culture - Preliminary Abscess - Thigh No growth in 1 week 11/17/17 23:26 Fungal Culture - Preliminary Abscess - Thigh Shauna albicans - Impressions ITS Impressions Chest X-Ray 11/17/17 14:09 CONCLUSION: No acute intrathoracic disease. Venous Doppler Study 11/27/17 00:00 CONCLUSION: The study is negative for lower extremity deep venous thrombosis. Discharge Plan - Discharge Disposition Patient Disposition: /Home Health Service - Discharge Condition Condition: Stable - Discharge Order Discharge Orders: Discharge Order (Routine); Ordered 11/27/17 Ordered By: Efren Ramon - Physicians Team Primary Care Provider: UNKNOWN, Attending Provider: Efren Ramon Other Providers: Mehreen Saldivar MD ; Surgeons,[facility] ; [facility],[place]
--- NOTE | 2017-11-27 15:35 | ECHRPT ---
Indication: HEART FAILURE CONCLUSIONS Slightly dilated left ventricle. Global hypokinesis. Estimated ejection fraction is 40-45%. Mild concentric left ventricular hypertrophy. Trace mitral valve regurgitation. BP: / HR: Rhythm: Sinus MEASUREMENTS (Male / Female) Normal Values Technical Quality:Fair 2D ECHO LV Diastolic Diameter PLAX 6.3 cm 4.2 - 5.9 / 3.9 - 5.3 cm LV Systolic Diameter PLAX 4.4 cm IVS Diastolic Thickness 1.1 cm 0.6 - 1.0 / 0.6 - 0.9 cm LVPW Diastolic Thickness 1.1 cm 0.6 - 1.0 / 0.6 - 0.9 cm LV Relative Wall Thickness 0.3 RV Internal Dim ED PLAX 2.4 cm LVOT Diameter 2.5 cm Aortic Root Diameter 3.4 cm LA Systolic Diameter LX 3.4 cm 3.0 - 4.0 / 2.7 - 3.8 cm M-MODE AV Cusp Separation MM 2.4 cm DOPPLER AV Peak Velocity 106.0 cm/s AV Peak Gradient 4.5 mmHg AV Mean Gradient 3.0 mmHg AV Velocity Time Integral 20.9 cm LVOT Peak Velocity 69.9 cm/s LVOT Peak Gradient 2.0 mmHg LVOT Velocity Time Integral 14.5 cm AV Area Cont Eq vti 3.4 cm AV Area Cont Eq pk 3.2 cm Mitral E Point Velocity 55.3 cm/s Mitral A Point Velocity 73.5 cm/s Mitral E to A Ratio 0.8 LV E' Lateral Velocity 7.2 cm/s Mitral E to LV E' Lateral Ratio 7.7 LV E' Septal Velocity 5.0 cm/s Mitral E to LV E' Septal Ratio 11.1 PV Peak Velocity 50.4 cm/s PV Peak Gradient 1.0 mmHg FINDINGS LEFT VENTRICLE Slightly dilated left ventricle. Global hypokinesis. Estimated ejection fraction is 40-45%. Mild concentric left ventricular hypertrophy. RIGHT VENTRICLE Normal right ventricular size and systolic function. LEFT ATRIUM The left atrial size is normal. RIGHT ATRIUM The right atrial size is normal. ATRIAL SEPTUM The interatrial septum not well visualized. AORTA The aortic root and proximal ascending aorta are normal in size on limited imaging. MITRAL VALVE Trace mitral valve regurgitation. AORTIC VALVE Trileaflet aortic valve. No aortic valve stenosis or regurgitation. TRICUSPID VALVE Structurally normal tricuspid valve. No tricuspid valve stenosis or regurgitation. PULMONARY VALVE Trivial pulmonary valve regurgitation. PERICARDIUM No pericardial effusion. Juvenal H. Liza MD (Electronically Signed) Final Date:27 November 2017 15:34
== END 2017-11-27 18:17 | disposition home health service (06) ==
LOC: NEPC 12:02 → NEDA 16:12 → N07 11-18 00:09
PROVIDERS: ADMIT Hospitalist; ATTEND Hospitalist